=== PATIENT | female | born 1935 | race Caucasian/White ===

== ENCOUNTER → 2018-12-25 | Outpatient (CLI) | payer MEDICARE ==
--- NOTE | 2018-12-25 18:17 | XR ---
EXAMINATION TYPE: XR chest 2V DATE OF EXAM: 12/25/2018 COMPARISON: Prior chest x-ray 04/11/2014 HISTORY: Shortness of breath TECHNIQUE: Frontal and lateral views of the chest are obtained. FINDINGS: There is no focal air space opacity, pleural effusion, or pneumothorax seen. The cardiac silhouette size is within normal limits. The osseous structures are intact. The aorta is dense. Pro minent lung volume may be indicative of underlying COPD. There is thoracic spondylosis. IMPRESSION: No acute cardiopulmonary process.
== END | disposition home or self-care (01) ==
LOC: RADXRMAIN 13:34
PROVIDERS: ATTEND Family Medicine
DX: R06.02 Shortness of breath (principal)
CPT/HCPCS: 71046

== ENCOUNTER → 2019-04-12 | Outpatient (CLI) | payer MEDICARE, BC ==
--- NOTE | 2019-04-16 10:45 | MM ---
Reason for exam: screening (asymptomatic). Last mammogram was performed 15 years ago. History: Patient is postmenopausal. Took estrogen for 16 years. Physical Findings: A clinical breast exam by your physician is recommended on an annual basis and results should be correlated with mammographic findings. MG 3D Screening Mammo W/Cad Bilateral CC and MLO view(s) were taken. No prior studies available for comparison. There are scattered fibroglandular densities. No suspicious abnormality. Benign vascular and oil cyst calcifications. ASSESSMENT: Negative, BI-RAD 1 RECOMMENDATION: Routine screening mammogram of both breasts in 1 year.
== END | disposition home or self-care (01) ==
LOC: RADMAMWWP 14:19
PROVIDERS: ATTEND Family Medicine
DX: Z12.31 Encounter for screening mammogram for malignant neoplasm of breast (principal)
CPT/HCPCS: 77063; 77067

== ENCOUNTER 2019-05-08 21:55 | Emergency (ER) | payer MEDICARE, BC ==
[2019-05-08 22:05] VITALS: RESP 16; TEMP 97.9
--- NOTE | 2019-05-08 23:01 | ED ---
General Adult HPI - General Chief complaint: GI Bleed Stated complaint: Rectal Bleeding Time Seen by Provider: 05/08/19 22:08 Source: patient Mode of arrival: ambulatory Limitations: no limitations - History of Present Illness Initial comments: Malinda is an 83-year-old female who presents to the emergency department today for evaluation of GI bleeding. Patient is currently doing oral prep for colonoscopy scheduled for tomorrow morning. Patient reports that she drink the first bottle of breath, she's had multiple stools that it become loose and more becoming clear in color, she states that her last bowel movement had some bright red blood. Patient does have a history of bright red bleeding due to hemorrhoids in the past. Patient does report crampy abdominal pain but nothing out of proportion to doing prep for colonoscopy. denies any chest pain palpitations lightheadedness shortness of breath. - Related Data Home Medications Medication Instructions Recorded Confirmed Clopidogrel Bisulfate [Plavix] 75 mg PO HS 04/11/14 05/07/19 Levothyroxine Sodium [Synthroid] 75 mcg PO DAILY 04/11/14 05/07/19 Simvastatin [Zocor] 40 mg PO HS 04/11/14 05/07/19 Famotidine 20 mg PO DAILY 04/16/19 05/07/19 Fenofibrate [Lofibra] 160 mg PO 1800 04/16/19 05/07/19 Lisinopril [Zestril] 5 mg PO DAILY 04/16/19 05/07/19 QUEtiapine [SEROquel] 75 mg PO HS 04/16/19 05/07/19 amLODIPine [Norvasc] 5 mg PO DAILY 04/16/19 05/07/19 Cholecalciferol [Vitamin D3 (25 1,000 unit PO DAILY 05/07/19 05/07/19 Mcg = 1000 Iu)] Garlic 1 each PO DAILY 05/07/19 05/07/19 Glucosam/Héctor-Msm1/C/Stephan/Bosw 1 each PO DAILY 05/07/19 05/07/19 [Glucosamine-Chondroitin Tablet] Ubidecarenone [Co Q-10] 100 mg PO DAILY 05/07/19 05/07/19 Vitamin E 100 unit PO DAILY 05/07/19 05/07/19 Allergies Allergy/AdvReac Type Severity Reaction Status Date / Time No Known Allergies Allergy Verified 05/08/19 22:04 Review of Systems ROS Statement: Those systems with pertinent positive or pertinent negative responses have been documented in the HPI. ROS Other: All systems not noted in ROS Statement are negative. Past Medical History Past Medical History: Hyperlipidemia, Hypertension Additional Past Medical History / Comment(s): occasional crampy, burning sensation in rectal/vaginal area History of Any Multi-Drug Resistant Organisms: None Reported Past Surgical History: No Surgical Hx Reported Past Psychological History: Depression Past Alcohol Use History: None Reported General Exam - General Exam Comments Initial Comments: Physical Exam GENERAL: Patient is well-developed and well-nourished. Patient is nontoxic and well-hydrated and is in no distress. HENT: Normocephalic, Atraumatic. EYES: PERRL, EOMI PULMONARY: Unlabored respirations. CARDIOVASCULAR: RRR Warm and well perfused extremities ABDOMEN: Non-distended SKIN: No rashes or bruising : Normal external genitalia Rectal exam with internal and external hemorrhoids Dried red blood noted on hemorrhoids, no active bleeding noted NEUROLOGIC: Alert and oriented Normal speech Normal gait MUSCULOSKELETAL: Moving all extremities with no apparent injury PSYCHIATRIC: No SI/HI Limitations: no limitations Course Vital Signs 05/08/19 05/08/19 22:02 23:44 Temperature 97.9 F Pulse Rate 89 71 Respiratory 16 16 Rate Blood Pressure 157/70 165/78 O2 Sat by Pulse 100 98 Oximetry Medical Decision Making - Medical Decision Making The patient was seen and evaluated history is obtained from patient. Patient had a single episode of bright red bleeding while doing colonoscopy prep. Patient is hemodynamically stable on arrival she is on anticoagulant medication. Labs were ordered and resulted with a hemoglobin of 14. Patient with no further GI bleeding in the emergency department despite being observed for over 2 hours. At this time patient stable for discharge home, continued GI prep, follow up with Dr. Valdez the morning for regularly scheduled colonoscopy. All questions pertaining care were answered return parameters were discussed patient was discharged home in stable condition. - Lab Data Result diagrams: 05/08/19 22:20 05/08/19 22:20 Lab Results 05/08/19 05/08/19 05/08/19 Range/Units 22:20 22:20 22:20 WBC 8.6 (3.8-10.6) k/uL RBC 4.34 (3.80-5.40) m/uL Hgb 14.6 (11.4-16.0) gm/dL Hct 41.9 (34.0-46.0) % MCV 96.5 (80.0-100.0) fL MCH 33.7 (25.0-35.0) pg MCHC 34.9 (31.0-37.0) g/dL RDW 11.9 (11.5-15.5) % Plt Count 361 (150-450) k/uL Neutrophils % 58 % Lymphocytes % 25 % Monocytes % 10 % Eosinophils % 5 % Basophils % 1 % Neutrophils # 5.0 (1.3-7.7) k/uL Lymphocytes # 2.1 (1.0-4.8) k/uL Monocytes # 0.8 (0-1.0) k/uL Eosinophils # 0.4 (0-0.7) k/uL Basophils # 0.1 (0-0.2) k/uL PT 10.5 (9.0-12.0) sec INR 1.0 (<1.2) APTT 23.5 (22.0-30.0) sec Sodium 139 (137-145) mmol/L Potassium 4.2 (3.5-5.1) mmol/L Chloride 108 H (98-107) mmol/L Carbon Dioxide 17 L (22-30) mmol/L Anion Gap 14 mmol/L BUN 22 H (7-17) mg/dL Creatinine 1.27 H (0.52-1.04) mg/dL Est GFR (CKD-EPI)AfAm 46 (>60 ml/min/1.73 sqM) Est GFR (CKD-EPI)NonAf 40 (>60 ml/min/1.73 sqM) Glucose 128 H (74-99) mg/dL Calcium 10.7 H (8.4-10.2) mg/dL Magnesium 2.0 (1.6-2.3) mg/dL Total Bilirubin 0.8 (0.2-1.3) mg/dL AST 22 (14-36) U/L ALT 16 (9-52) U/L Alkaline Phosphatase 61 (38-126) U/L Total Protein 7.7 (6.3-8.2) g/dL Albumin 5.0 (3.5-5.0) g/dL Disposition Clinical Impression: Bright red blood per rectum Disposition: HOME SELF-CARE Condition: Stable Instructions (If sedation given, give patient instructions): Gastrointestinal Bleeding (ED) Additional Instructions: Continue your colonoscopy prep as prescribed, follow up with Dr. Haddad in the morning for your colonoscopy. Return to the ER if you have any significant increase in bleeding, development of chest pain palpitation shortness breath lightheadedness or new or concerning symptoms. Is patient prescribed a controlled substance at d/c from ED?: No Referrals: Daniel Martinez DO [Primary Care Provider] - 1-2 days
[2019-05-08 23:11] LABS: Basophils # (A) 0.1 k/uL (0-0.2); Basophils % (A) 1 %; Eosinophils # (A) 0.4 k/uL (0-0.7); Eosinophils % (A) 5 %; HCT 41.9 % (34.0-46.0); HGB 14.6 gm/dL (11.4-16.0); Lymphocytes # (A) 2.1 k/uL (1.0-4.8); Lymphocytes % (A) 25 %; MCH 33.7 pg (25.0-35.0); MCHC 34.9 g/dL (31.0-37.0); MCV 96.5 fL (80.0-100.0); Mean Platelet Volume 6.6; Monocytes # (A) 0.8 k/uL (0-1.0); Monocytes % (A) 10 %; Neutrophils % (A) 58 %; Platelet Count 361 k/uL (150-450); RBC 4.34 m/uL (3.80-5.40); RDW 11.9 % (11.5-15.5); WBC 8.6 k/uL (3.8-10.6)
[2019-05-08 23:19] LABS: Partial Thromboplastin Time 23.5 sec (22.0-30.0); Prothrombin Time 10.5 sec (9.0-12.0)
[2019-05-08 23:25] LABS: Calcium 10.7 mg/dL (8.4-10.2); Potassium 4.2 mmol/L (3.5-5.1); Total Bilirubin 0.8 mg/dL (0.2-1.3); Total Protein 7.7 g/dL (6.3-8.2)
[2019-05-08 23:50] VITALS: BP 165/78; PULSE 71
== END 2019-05-08 23:50 | disposition home or self-care (01) ==
LOC: EC 21:55
DX: K64.4 Residual hemorrhoidal skin tags (principal); K64.8 Other hemorrhoids; E78.5 Hyperlipidemia, unspecified; I10 Essential (primary) hypertension; F32.9 Major depressive disorder, single episode, unspecified; Z79.02 Long term (current) use of antithrombotics/antiplatelets; Z79.890 Hormone replacement therapy; Z79.899 Other long term (current) drug therapy
CPT/HCPCS: 36415; 80053; 83735; 85025; 85610; 85730; 99283

== ENCOUNTER 2019-05-09 08:06 | Day surgery (SDC) | payer MEDICARE, BC ==
[2019-04-16 12:19] VITALS: BMI 26.2
[~2019-05-09 08:06] MED LIST: LACTATED RINGERS 1,000 ML IV SCH; LIDOCAINE 1% 20 ML VIAL (10MG/ML) FOR IV START INTRADERMA PRN
--- NOTE | 2019-05-09 08:53 | P.GSHP ---
History of Present Illness H&P Date: 05/09/19 CHIEF COMPLAINT: Colon screen HISTORY OF PRESENT ILLNESS: The patient is a 83-year-old female who presents for colon screen. Lower endoscopy was offered for further evaluation and management. PAST MEDICAL HISTORY: Please see list. PAST SURGICAL HISTORY: Please see list. MEDICATIONS: Please see list. ALLERGIES: Please see list. SOCIAL HISTORY: No illicit drug use FAMILY HISTORY: No reports of Crohn disease or ulcerative colitis. REVIEW OF ORGAN SYSTEMS: CONSTITUTIONAL: No reports of fevers or chills. PHYSICAL EXAM: VITAL SIGNS: Stable GENERAL: Well-developed pleasant in no acute distress. HEENT: No scleral icterus. Extraocular movements grossly intact. Moist buccal mucosa. NECK: Supple without lymphadenopathy. CHEST: Unlabored respirations. Equal bilateral excursions. CARDIOVASCULAR: Regular rate and rhythm. Distal 2+ pulses. ABDOMEN: Soft, nontender, nondistended. MUSCULOSKELETAL: No clubbing, cyanosis, or edema. ASSESSMENT: 1. Colon screen. PLAN: 1. Recommend proceeding with a lower endoscopy Past Medical History Past Medical History: Hyperlipidemia, Hypertension Additional Past Medical History / Comment(s): occasional crampy, burning sensation in rectal/vaginal area History of Any Multi-Drug Resistant Organisms: None Reported Past Surgical History: No Surgical Hx Reported Additional Past Surgical History / Comment(s): COLONOSCOPY, LEFT EYE SURGERY - LASER Past Anesthesia/Blood Transfusion Reactions: Motion Sickness Past Psychological History: Depression Past Alcohol Use History: None Reported - Past Family History Father Family Medical History: Cancer Brother(s) Family Medical History: Cancer Additional Family Medical History / Comment(s): COLON CANCER Medications and Allergies Home Medications Medication Instructions Recorded Confirmed Type Clopidogrel Bisulfate [Plavix] 75 mg PO HS 04/11/14 05/07/19 History Levothyroxine Sodium [Synthroid] 75 mcg PO DAILY 04/11/14 05/07/19 History Simvastatin [Zocor] 40 mg PO HS 04/11/14 05/07/19 History Famotidine 20 mg PO DAILY 04/16/19 05/07/19 History Fenofibrate [Lofibra] 160 mg PO 1800 04/16/19 05/07/19 History Lisinopril [Zestril] 5 mg PO DAILY 04/16/19 05/07/19 History QUEtiapine [SEROquel] 75 mg PO HS 04/16/19 05/07/19 History amLODIPine [Norvasc] 5 mg PO DAILY 04/16/19 05/09/19 History Cholecalciferol [Vitamin D3 (25 1,000 unit PO DAILY 05/07/19 05/07/19 History Mcg = 1000 Iu)] Garlic 1 each PO DAILY 05/07/19 05/07/19 History Glucosam/Héctor-Msm1/C/Stephan/Bosw 1 each PO DAILY 05/07/19 05/07/19 History [Glucosamine-Chondroitin Tablet] Ubidecarenone [Co Q-10] 100 mg PO DAILY 05/07/19 05/07/19 History Vitamin E 100 unit PO DAILY 05/07/19 05/07/19 History Allergies Allergy/AdvReac Type Severity Reaction Status Date / Time No Known Allergies Allergy Verified 05/09/19 08:42
[2019-05-09 08:55] VITALS: TEMP 97.7
[2019-05-09] MEDS ORDERED: PROPOFOL 10 MG/ML 20 ML VIAL IV ONE (09:33)
--- NOTE | 2019-05-09 10:04 | P.PCN ---
Date of Procedure: 05/09/19 Description of Procedure: PREOPERATIVE DIAGNOSIS: Personal history of colon polyps Family history colon cancer, brother and sister Rectal bleeding with history of hemorrhoids POSTOPERATIVE DIAGNOSIS: Personal history of colon polyps Family history colon cancer, brother and sister Multiple tubular adenomas throughout the colon. External hemorrhoids, grade 4 Internal hemorrhoids, grade 3 with recent bleeding OPERATION: Colonoscopy to the ileocecal valve and appendiceal orifice. Colonoscopy with multiple hot snare polypectomies SURGEON: Candida Parr MD. ANESTHESIA: MAC. INDICATIONS: The patient is an 83-year-old female who presents with rectal bleeding and family history of colon cancer. Benefits and risks were described and informed consent was obtained. DESCRIPTION OF PROCEDURE: The patient had undergone Suprep. She had been brought into the operating room and laid in the left lateral decubitus position. After adequate intravenous sedation, the rectum was examined with 2% lidocaine jelly. External hemorrhoids were encountered with fresh blood. The rectal tone was within normal limits. No lesions were palpated in the rectal vault. An Olympus pediatric colonoscope was advanced until the ileocecal valve and appendiceal orifice were clearly viewed. The prep was excellent. Sigmoid diverticulosis was encountered. Multiple colonic polyps were found and snare polypectomy. No evidence of focal colitis was found. Retroflexion of the scope demonstrated grade 3 internal hemorrhoids without active bleeding or inflammation. The colon was desufflated. The patient had tolerated the procedure well. Withdrawal time was over 6 minutes. FINDINGS: Aronchick preparation quality scale 1 (1-5) Internal hemorrhoids, grade 3 with recent inflammation and bleeding External hemorrhoids, grade 4. No arteriovenous malformations. Sigmoid diverticulosis Removal of 2 polyps from the proximal, mid transverse colon and descending colon: - Snare polypectomy 30 cm from the anal verge, 15 mm tubulovillous adenoma polyp, descending colon - Snare polypectomy 10 cm from the anal verge, 8 mm tubulovillous adenoma polyp, rectum No focal colitis. RECOMMENDATIONS: Given severity of tubular adenomas, recommend repeat colonoscopy 1 year. Plan - Discharge Summary Discharge Rx Participant: No New Discharge Prescriptions: No Action Simvastatin [Zocor] 40 mg PO HS Levothyroxine Sodium [Synthroid] 75 mcg PO DAILY Clopidogrel Bisulfate [Plavix] 75 mg PO HS QUEtiapine [SEROquel] 75 mg PO HS Lisinopril [Zestril] 5 mg PO DAILY amLODIPine [Norvasc] 5 mg PO DAILY Famotidine 20 mg PO DAILY Fenofibrate [Lofibra] 160 mg PO 1800 Cholecalciferol [Vitamin D3 (25 Mcg = 1000 Iu)] 1,000 unit PO DAILY Vitamin E 100 unit PO DAILY Ubidecarenone [Co Q-10] 100 mg PO DAILY Glucosam/Héctor-Msm1/C/Stephan/Bosw [Glucosamine-Chondroitin Tablet] 1 each PO DAILY Garlic 1 each PO DAILY Discharge Medication List Clopidogrel Bisulfate [Plavix] 75 mg PO HS 04/11/14 [History] Levothyroxine Sodium [Synthroid] 75 mcg PO DAILY 04/11/14 [History] Simvastatin [Zocor] 40 mg PO HS 04/11/14 [History] Famotidine 20 mg PO DAILY 04/16/19 [History] Fenofibrate [Lofibra] 160 mg PO 1800 04/16/19 [History] Lisinopril [Zestril] 5 mg PO DAILY 04/16/19 [History] QUEtiapine [SEROquel] 75 mg PO HS 04/16/19 [History] amLODIPine [Norvasc] 5 mg PO DAILY 04/16/19 [History] Cholecalciferol [Vitamin D3 (25 Mcg = 1000 Iu)] 1,000 unit PO DAILY 05/07/19 [History] Garlic 1 each PO DAILY 05/07/19 [History] Glucosam/Héctor-Msm1/C/Stephan/Bosw [Glucosamine-Chondroitin Tablet] 1 each PO DAILY 05/07/19 [History] Ubidecarenone [Co Q-10] 100 mg PO DAILY 05/07/19 [History] Vitamin E 100 unit PO DAILY 05/07/19 [History] Follow up Appointment(s)/Referral(s): Candida Parr MD [STAFF PHYSICIAN] - 05/22/19 Patient Instructions/Handouts: Colorectal Polyps (DC), Diverticulosis Diet (GEN), Diverticulosis (GEN), Hemorrhoids (DC), Rectal Bleeding (DC) Activity/Diet/Wound Care/Special Instructions: Repeat colonoscopy 2 years, 2020 Discharge Disposition: HOME SELF-CARE
[2019-05-09 10:22] VITALS: RESP 16
[2019-05-09 10:49] VITALS: BP 137/60; PULSE 71
== END 2019-05-09 11:16 | disposition home or self-care (01) ==
LOC: ORWHC2ENDO 08:06
PROVIDERS: ATTEND Surgery Plastic and Reconstructive Surgery
DX: D12.8 Benign neoplasm of rectum (principal); K51.40 Inflammatory polyps of colon without complications; K57.30 Diverticulosis of large intestine without perforation or abscess without bleeding; K64.2 Third degree hemorrhoids; K64.4 Residual hemorrhoidal skin tags; I10 Essential (primary) hypertension; E78.5 Hyperlipidemia, unspecified; K21.9 Gastro-esophageal reflux disease without esophagitis; F32.9 Major depressive disorder, single episode, unspecified; Z86.73 Personal history of transient ischemic attack (TIA), and cerebral infarction without residual deficits; Z79.02 Long term (current) use of antithrombotics/antiplatelets; Z79.890 Hormone replacement therapy; Z79.899 Other long term (current) drug therapy; Z86.010 Personal history of colon polyps; Z80.0 Family history of malignant neoplasm of digestive organs
CPT/HCPCS: 88305; 45385; J2704

== ENCOUNTER → 2019-11-21 | Outpatient (CLI) | payer MEDICARE, BC ==
--- NOTE | 2019-11-21 12:50 | CT ---
EXAMINATION TYPE: CT abdomen pelvis wo con DATE OF EXAM: 11/21/2019 COMPARISON: None HISTORY: 84-year-old female Lower pelvic pain CT DLP: 816 mGycm. Automated exposure control for dose reduction was used. TECHNIQUE: Contiguous axial scanning of the abdomen and pelvis without IV contrast. Coronal and sagit beck reconstructions performed. FINDINGS: Median sternotomy wires are present multiple calcified lymph nodes in the visualized subcarinal regio n and right hilum compatible with prior granulomatous disease. Right lower lobe tiny calcified granul javy. Small hiatal hernia. Calcified granuloma posterior right liver lobe. Additional calcified granulomas within the spleen. Gallstones measuring 1.0 cm with a collapsed gallbladder. Adrenal glands, kidneys with bilateral extrarenal pelves, and atrophic pancreas show no gross abnorma lity by noncontrast CT. Small superior and anterior splenules. No dilated small bowel, free fluid, or free air. No abnormal appendix is identified. Oral contrast has progressed to the mid transverse colon. No sign ificant stool burden. Mild diverticulosis along the proximal and mid sigmoid colon. No pericolonic in flammatory change. There is central and left abdominal Rekha mesentery and associated nonenlarged and borderline sized l ymph nodes measuring up to 7 mm, right axial image 47 and coronal image 25. Circumaortic left renal vein. Mild atherosclerotic calcifications throughout the abdominal aorta and iliac arteries. Bladder urine distended. Uterus anteverted. Small amount of air in the upper vagina near the posterio r fornix. Both ovaries are visualized. No abnormal fluid collection in the pelvis or pelvic lymphaden opathy. Bones: Mild degenerative change at the hips. Facet arthropathy lower lumbar spine. Degenerative grade 1 retrolisthesis at L2-L3. Moderate to severe degenerative disc disease here. IMPRESSION: 1. Mid and left abdominal rekha mesentery with associated nonenlarged and borderline sized lymph nod es measuring up to 7 mm. 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 Follow-up in 3 months to ensure stability/resolution and exclude more aggressive etiologies such as early lymphoma. 2. Small hiatal hernia, cholelithiasis, and sigmoid diverticulosis.
== END | disposition home or self-care (01) ==
LOC: RADCTMAIN 10:20
PROVIDERS: ATTEND Family Medicine
DX: K44.9 Diaphragmatic hernia without obstruction or gangrene (principal); K80.20 Calculus of gallbladder without cholecystitis without obstruction; K57.30 Diverticulosis of large intestine without perforation or abscess without bleeding; R93.5 Abnormal findings on diagnostic imaging of other abdominal regions, including retroperitoneum; R10.9 Unspecified abdominal pain; Z13.9 Encounter for screening, unspecified
CPT/HCPCS: 36415; 74176; 82565; 84520

== ENCOUNTER 2019-12-26 08:05 | Day surgery (SDC) | payer MEDICARE, BC ==
[2019-12-24 11:34] VITALS: BMI 24.6
--- NOTE | 2019-12-26 08:03 | P.GSHP ---
History of Present Illness H&P Date: 12/26/19 CHIEF COMPLAINT: GERD HISTORY OF PRESENT ILLNESS: The patient is a 84-year-old female who presents reports gastroesophageal reflux disease. Upper endoscopy was offered for further evaluation and management. PAST MEDICAL HISTORY: Please see list. PAST SURGICAL HISTORY: Please see list. MEDICATIONS: Please see list. ALLERGIES: Please see list. SOCIAL HISTORY: No illicit drug use FAMILY HISTORY: No reports of Crohn disease or ulcerative colitis. REVIEW OF ORGAN SYSTEMS: CONSTITUTIONAL: No reports of fevers or chills. GI: Denies any blood in stools or constipation. PHYSICAL EXAM: VITAL SIGNS: Stable GENERAL: Well-developed and pleasant in no acute distress. HEENT: No scleral icterus. Extraocular movements grossly intact. Moist buccal mucosa. NECK: Supple without lymphadenopathy. CHEST: Unlabored respirations. Equal bilateral excursions. CARDIOVASCULAR: Regular rate and rhythm. Distal 2+ pulses. ABDOMEN: Soft, nondistended. MUSCULOSKELETAL: No clubbing, cyanosis, or edema. ASSESSMENT: 1. Gastroesophageal reflux disease PLAN: 1. Recommend proceeding with an upper endoscopy Past Medical History Past Medical History: Hyperlipidemia, Hypertension Additional Past Medical History / Comment(s): occasional crampy, GALLSTONES SHOWN ON CT-SCAN, POSS. HIATAL HERNIA History of Any Multi-Drug Resistant Organisms: None Reported Past Surgical History: No Surgical Hx Reported Additional Past Surgical History / Comment(s): COLONOSCOPY. BILAT CATARACTS REMOVED WITH LENS IMPLANTS Past Anesthesia/Blood Transfusion Reactions: No Reported Reaction Smoking Status: Never smoker - Past Family History Father Family Medical History: Cancer Sister(s) Family Medical History: Cancer Brother(s) Family Medical History: Cancer Medications and Allergies Home Medications Medication Instructions Recorded Confirmed Type Clopidogrel Bisulfate [Plavix] 75 mg PO HS 04/11/14 12/24/19 History Levothyroxine Sodium [Synthroid] 75 mcg PO DAILY 04/11/14 12/24/19 History Simvastatin [Zocor] 40 mg PO HS 04/11/14 12/24/19 History Famotidine 20 mg PO DAILY 04/16/19 12/24/19 History Fenofibrate [Lofibra] 160 mg PO 1800 04/16/19 12/24/19 History QUEtiapine [SEROquel] 75 mg PO HS 04/16/19 12/24/19 History amLODIPine [Norvasc] 5 mg PO DAILY 04/16/19 12/24/19 History lisinopriL [Zestril] 5 mg PO DAILY 04/16/19 12/24/19 History Cholecalciferol [Vitamin D3 (25 1,000 unit PO DAILY 05/07/19 12/24/19 History Mcg = 1000 Iu)] Garlic 1 each PO DAILY 05/07/19 12/24/19 History Glucosam/Héctor-Msm1/C/Stephan/Bosw 1 each PO DAILY 05/07/19 12/24/19 History [Glucosamine-Chondroitin Tablet] Ubidecarenone [Co Q-10] 100 mg PO DAILY 05/07/19 12/24/19 History Allergies Allergy/AdvReac Type Severity Reaction Status Date / Time No Known Allergies Allergy Verified 12/24/19 11:19
[~2019-12-26 08:05] MED LIST changes: -LIDOCAINE 1% 20 ML VIAL (10MG/ML) FOR IV START INTRADERMA PRN
[2019-12-26 08:31] VITALS: RESP 16; TEMP 98.1
[2019-12-26] MEDS ORDERED: LIDOCAINE 1% (10MG/ML) FOR IV START INTRADERMA ONE (08:43)
[2019-12-26] MEDS ORDERED: LIDOCAINE 1% INJ 10MG/ML (20 ML MDV) ONE (08:56)
[2019-12-26] MEDS ORDERED: PROPOFOL 10 MG/ML 20 ML VIAL IV ONE (08:56)
--- NOTE | 2019-12-26 09:18 | P.PCN ---
Date of Procedure: 12/26/19 Description of Procedure: PREOPERATIVE DIAGNOSIS: Gastroesophageal reflux disease. POSTOPERATIVE DIAGNOSIS: Gastroesophageal reflux disease. Diaphragmatic hiatal hernia OPERATION: Esophagogastroduodenoscopy with biopsies along antrum. SURGEON: Candida Parr MD ANESTHESIA: MAC. INDICATIONS: The patient is a 89year-old female who presents with a history of reflux disease. Benefits and risks of the procedure were described. Informed consent was obtained. DESCRIPTION: The patient was brought into the endoscopy suite and laid in the left lateral decubitus position. An Olympus gastroscope was passed along the posterior oropharynx down to the distal esophagus where the squamocolumnar junction was encountered at 34 cm from the incisors. The stomach was entered and no bile reflux was found. Additional findings are listed below. Biopsies with cold forceps were obtained of the antrum. The first through third portion of the duodenum was examined and unremarkable. Retroflexion of the scope confirmed Hill grade 4 lower esophageal valve. The squamocolumnar junction demonstrated LA grade B erosive esophagitis. The stomach was desufflated. The patient tolerated the procedure well. FINDINGS: Squamocolumnar junction 34 cm from the incisors. Diaphragmatic hiatus at 37 cm. Hiatal hernia, 3 cm Hill grade 4 lower esophageal valve. LA grade B erosive esophagitis. No active duodenitis. Chronic gastritis RECOMMENDATIONS: Upper endoscopy as needed. Recommend esophagram for further assessment Plan - Discharge Summary Discharge Rx Participant: No New Discharge Prescriptions: Continue Simvastatin [Zocor] 40 mg PO HS Levothyroxine Sodium [Synthroid] 75 mcg PO DAILY Clopidogrel Bisulfate [Plavix] 75 mg PO HS QUEtiapine [SEROquel] 75 mg PO HS lisinopriL [Zestril] 5 mg PO DAILY amLODIPine [Norvasc] 5 mg PO DAILY Famotidine 20 mg PO DAILY Fenofibrate [Lofibra] 160 mg PO 1800 Cholecalciferol [Vitamin D3 (25 Mcg = 1000 Iu)] 1,000 unit PO DAILY Ubidecarenone [Co Q-10] 100 mg PO DAILY Glucosam/Héctor-Msm1/C/Stephan/Bosw [Glucosamine-Chondroitin Tablet] 1 each PO DAILY Garlic 1 each PO DAILY Discharge Medication List Clopidogrel Bisulfate [Plavix] 75 mg PO HS 04/11/14 [History] Levothyroxine Sodium [Synthroid] 75 mcg PO DAILY 04/11/14 [History] Simvastatin [Zocor] 40 mg PO HS 04/11/14 [History] Famotidine 20 mg PO DAILY 04/16/19 [History] Fenofibrate [Lofibra] 160 mg PO 1800 04/16/19 [History] QUEtiapine [SEROquel] 75 mg PO HS 04/16/19 [History] amLODIPine [Norvasc] 5 mg PO DAILY 04/16/19 [History] lisinopriL [Zestril] 5 mg PO DAILY 04/16/19 [History] Cholecalciferol [Vitamin D3 (25 Mcg = 1000 Iu)] 1,000 unit PO DAILY 05/07/19 [History] Garlic 1 each PO DAILY 05/07/19 [History] Glucosam/Héctor-Msm1/C/Stephan/Bosw [Glucosamine-Chondroitin Tablet] 1 each PO DAILY 05/07/19 [History] Ubidecarenone [Co Q-10] 100 mg PO DAILY 05/07/19 [History] Follow up Appointment(s)/Referral(s): Candida Parr MD [STAFF PHYSICIAN] - 01/10/20 Patient Instructions/Handouts: Hiatal Hernia (DC) Activity/Diet/Wound Care/Special Instructions: START PLAVIX DECEMBER 29 Discharge Disposition: HOME SELF-CARE
[2019-12-26 09:33] VITALS: BP 165/72; PULSE 70
== END 2019-12-26 10:15 | disposition home or self-care (01) ==
LOC: ORWHC2ENDO 08:05
PROVIDERS: ATTEND Surgery Plastic and Reconstructive Surgery
DX: K21.0 Gastro-esophageal reflux disease with esophagitis (principal); K22.10 Ulcer of esophagus without bleeding; K44.9 Diaphragmatic hernia without obstruction or gangrene; K29.50 Unspecified chronic gastritis without bleeding; R10.12 Left upper quadrant pain; E78.5 Hyperlipidemia, unspecified; I10 Essential (primary) hypertension; E07.9 Disorder of thyroid, unspecified; F31.9 Bipolar disorder, unspecified; K80.80 Other cholelithiasis without obstruction; Z98.890 Other specified postprocedural states; Z98.41 Cataract extraction status, right eye; Z98.42 Cataract extraction status, left eye; Z96.1 Presence of intraocular lens; Z79.02 Long term (current) use of antithrombotics/antiplatelets; Z79.890 Hormone replacement therapy; Z79.899 Other long term (current) drug therapy; Z80.9 Family history of malignant neoplasm, unspecified
CPT/HCPCS: 88305; 43239; J2001; J2704

== ENCOUNTER → 2020-02-04 | Outpatient (CLI) | payer MEDICARE, BC ==
--- NOTE | 2020-02-04 14:18 | CT ---
EXAMINATION TYPE: CT abdomen pelvis w con DATE OF EXAM: 02/04/2020 COMPARISON: CT abdomen pelvis 11/21/2019 HISTORY: Lymphadenopathy, abdominal pain CT DLP: 995 mGycm Automated exposure control for dose reduction was used. TECHNIQUE: Helical acquisition of images was performed from the lung bases through the pelvis. CONTRAST: Performed with Oral Contrast and with IV Contrast, patient injected with 80 mL of Isovue 300. FINDINGS: LUNG BASES: No pericardial or pleural effusion. Calcified coronary artery disease. LIVER: Hepatic cyst and too small to characterize hypodense lesions. Hypodensity near the falciform l igament typical for focal fatty infiltration. Calcified granuloma. BILIARY SYSTEM: Cholelithiasis. No intrahepatic or extrahepatic biliary ductal dilatation. PANCREAS: Atrophic. SPLEEN: Not enlarged. Splenule. Calcified granulomas. ADRENALS: Normal. KIDNEYS: Too small to characterize hypodense lesions on the right. No hydronephrosis bilaterally. BOWEL: Small hiatal hernia. No evidence of bowel obstruction or thickening. Colonic diverticulosis. No acute diverticulitis. PERITONEUM: No free air is visualized. No free fluid. Redemonstrated haziness of the root of the mes entery, with mesenteric lymphadenopathy, unchanged versus 11/21/2019. ADENOPATHY: Mesenteric root prominent lymph nodes unchanged versus 11/21/2019. PELVIS: Normal. VASCULATURE: No abdominal aortic aneurysm. Mild to moderate scattered calcified atherosclerotic dise ase. MUSCULOSKELETAL: Degenerative changes of the spine. No aggressive appearing osseous destructive lesi ons. IMPRESSION: 1. No acute findings to explain patient's abdominal pain. 2. Haziness of the mesenteric root with prominent mesenteric lymph nodes, unchanged versus 11/21/2019 . 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 3. Cholelithiasis. 4. Colonic diverticulosis. No acute diverticulitis.
== END | disposition home or self-care (01) ==
LOC: RADCTMAIN 11:18
PROVIDERS: ATTEND Internal Medicine Hematology & Oncology
DX: K80.20 Calculus of gallbladder without cholecystitis without obstruction (principal); K57.30 Diverticulosis of large intestine without perforation or abscess without bleeding
CPT/HCPCS: 82565; 84520; 74177; 36415; Q9967

== ENCOUNTER 2020-02-08 05:53 | Day surgery (SDC) | payer MEDICARE, BC ==
[2020-02-06 12:33] VITALS: BMI 24.5
[2020-02-08] MEDS ORDERED: HEPARIN SODIUM,PORCINE 5,000 UNIT/ML 1 ML VIAL SQ ONE (06:00)
[2020-02-08] MEDS ORDERED: LACTATED RINGERS 1,000 ML IV SCH (06:04)
[2020-02-08] MEDS ORDERED: fentaNYL (PF) 50 MCG/ML 2 ML AMP IVP PRN (06:04)
[2020-02-08] MEDS ORDERED: LIDOCAINE 1% (10MG/ML) FOR IV START INTRADERMA PRN (06:04)
[2020-02-08] MEDS ORDERED: DEXAMETHASONE SOD PHOSPHATE 10 MG/ML 1 ML VIAL IV ONE (06:04)
[2020-02-08] MEDS ORDERED: MIDAZOLAM 2 MG/2 ML VIAL IV PRN (06:04)
[2020-02-08] MEDS ORDERED: ONDANSETRON 4 MG/2 ML VIAL IVP ONE ×2 (06:04→10:18)
[2020-02-08] MEDS ORDERED: LACTATED RINGERS 1,000 ML IV ONE ×2 (06:51→08:27)
[2020-02-08] MEDS ORDERED: ACETAMINOPHEN TAB 325 MG TAB PO STA (07:02)
--- NOTE | 2020-02-08 07:06 | P.GSHP ---
History of Present Illness H&P Date: 02/08/20 CHIEF COMPLAINT: Gallstones HISTORY OF PRESENT ILLNESS: The patient is a 84-year-old female who presents with history of epigastric including right upper quadrant abdominal pain. She underwent diagnostic studies for her gallbladder. Separately her clinical picture was consistent with Gallstones. Now she presents for surgical intervention. PAST MEDICAL HISTORY: Please see list PAST SURGICAL HISTORY: Please see list MEDICATIONS: Please see list ALLERGIES: Please see list SOCIAL HISTORY: Please see list FAMILY HISTORY: Please see list REVIEW OF ORGAN SYSTEMS: CONSTITUTIONAL: No reports of fevers or chills. PHYSICAL EXAM: VITAL SIGNS: Afebrile vital signs stable GENERAL: Well-developed pleasant in no acute distress. HEENT: No scleral icterus. Extraocular movements grossly intact. Moist buccal mucosa. NECK: Supple without lymphadenopathy. CHEST: Unlabored respirations. Equal bilateral excursions. CARDIOVASCULAR: Distal 2+ pulses. ABDOMEN: Soft, nondistended. Tender along the epigastrium and right upper quadrant. MUSCULOSKELETAL: No clubbing, cyanosis, or edema. NEURO: Cranial nerves II to XII within normal limits. No focal or lateralizing signs. PSYCH: Alert and oriented to person, place and time. SKIN: Well-perfused good skin turgor. ASSESSMENT: 1. Symptomatic gallstones PLAN: 1. Will need a robotic cholecystectomy possible open. Benefits and risks were described. 2. Heparin for DVT prophylaxis 5000 units. 3. Antibiotic prophylaxis. Past Medical History Past Medical History: Hyperlipidemia, Hypertension, Osteoarthritis (OA), Thyroid Disorder Additional Past Medical History / Comment(s): GALLSTONES SHOWN ON CT-SCAN, vertigo, hx "eye occlusion" with Tia-has a little balance problems. SOB, hiatal hernia, diverticulosis, hx anemia as child, History of Any Multi-Drug Resistant Organisms: None Reported Past Surgical History: No Surgical Hx Reported Additional Past Surgical History / Comment(s): RIGOBERTO CATARACTS REMOVED WITH LENS IMPLANTS, laser surgery left eye Past Anesthesia/Blood Transfusion Reactions: Motion Sickness Smoking Status: Never smoker - Past Family History Father Family Medical History: Cancer Brother(s) Family Medical History: Cancer Sister(s) Family Medical History: Cancer Additional Family Medical History / Comment(s): colon Medications and Allergies Home Medications Medication Instructions Recorded Confirmed Type Clopidogrel Bisulfate [Plavix] 75 mg PO HS 04/11/14 02/06/20 History Levothyroxine Sodium [Synthroid] 75 mcg PO DAILY 04/11/14 02/06/20 History Simvastatin [Zocor] 40 mg PO HS 04/11/14 02/06/20 History QUEtiapine [SEROquel] 75 mg PO HS 04/16/19 02/06/20 History amLODIPine [Norvasc] 5 mg PO DAILY 04/16/19 02/06/20 History lisinopriL [Zestril] 5 mg PO DAILY 04/16/19 02/06/20 History Cholecalciferol [Vitamin D3 (25 1,000 unit PO DAILY 05/07/19 02/06/20 History Mcg = 1000 Iu)] Garlic 1 each PO DAILY 05/07/19 02/06/20 History Glucosam/Héctor-Msm1/C/Stephan/Bosw 1 each PO DAILY 05/07/19 02/06/20 History [Glucosamine-Chondroitin Tablet] Ubidecarenone [Co Q-10] 100 mg PO DAILY 05/07/19 02/06/20 History Allergies Allergy/AdvReac Type Severity Reaction Status Date / Time No Known Allergies Allergy Verified 02/06/20 12:16 Surgical - Exam Vital Signs Temp Pulse Resp BP Pulse Ox 97.0 F L 74 18 148/67 98 02/08/20 06:40 02/08/20 06:40 02/08/20 06:40 02/08/20 06:40 02/08/20 06:40
[2020-02-08 07:08] LABS: Basophils # (A) 0.1 k/uL (0-0.2); Basophils % (A) 1 %; Eosinophils # (A) 0.5 k/uL (0-0.7); Eosinophils % (A) 9 %; HCT 39.7 % (34.0-46.0); HGB 13.1 gm/dL (11.4-16.0); Lymphocytes # (A) 1.6 k/uL (1.0-4.8); Lymphocytes % (A) 27 %; MCH 32.1 pg (25.0-35.0); MCV 97.2 fL (80.0-100.0); Mean Platelet Volume 7.2; Monocytes # (A) 0.5 k/uL (0-1.0); Monocytes % (A) 8 %; Neutrophils # (A) 3.2 k/uL (1.3-7.7); Neutrophils % (A) 53 %; Platelet Count 240 k/uL (150-450); RBC 4.08 m/uL (3.80-5.40); RDW 12.8 % (11.5-15.5)
[2020-02-08 07:19] LABS: Albumin 4.5 g/dL (3.5-5.0); Calcium 9.7 mg/dL (8.4-10.2); Total Bilirubin 0.6 mg/dL (0.2-1.3); Total Protein 6.9 g/dL (6.3-8.2)
[2020-02-08] MEDS ORDERED: GLYCOPYRROLATE 0.2 MG/ML 2 ML VIAL ONE (07:34)
[2020-02-08] MEDS ORDERED: ROCURONIUM BROMIDE 10 MG/ML 5 ML VIAL IV ONE (07:34)
[2020-02-08] MEDS ORDERED: PROPOFOL 10 MG/ML 20 ML VIAL IV ONE (07:34)
[2020-02-08] MEDS ORDERED: fentaNYL (PF) 50 MCG/ML 2 ML AMP ONE (07:34)
[2020-02-08] MEDS ORDERED: MIDAZOLAM 2 MG/2 ML VIAL ONE (07:34)
[2020-02-08] MEDS ORDERED: NEOSTIGMINE 1 MG/ML 10 ML VIAL ONE (07:34)
[2020-02-08] MEDS ORDERED: LIDOCAINE 1% INJ 10MG/ML (20 ML MDV) ONE (07:34)
[2020-02-08] MEDS ORDERED: INDOCYANINE GREEN 25 MG VIAL IV ONE (07:34)
[2020-02-08] MEDS ORDERED: SUCCINYLCHOLINE CHLORIDE 100 MG/5 ML SYR IV ONE (07:34)
[2020-02-08] MEDS ORDERED: BUPIVACAINE (PF) 0.25% 30 ML VIAL SQ ONE (07:59)
--- NOTE | 2020-02-08 08:50 | P.OP ---
Date of Procedure: 02/08/20 Description of Procedure: SURGEON: PAULO PARR MD PREOPERATIVE DIAGNOSES: 1. Acute cholecystitis 2. Gastroesophageal reflux disease 3. Generalized anxiety disorder POSTOPERATIVE DIAGNOSES: 1. Acute cholecystitis 2. Gastroesophageal reflux disease 3. Generalized anxiety disorder OPERATION: Robotic-assisted da Joe Xi laparoscopic cholecystectomy, multiport with FIREFLY ESTIMATED BLOOD LOSS: 5 mL. SPECIMENS REMOVED: Gallbladder. COMPLICATIONS: None. OPERATIVE FINDINGS: 1. Moderate pericholecystic fluid with edematous gallbladder wall consistent with acute cholecystitis INDICATIONS: The patient is a 84-year-old female who presents with epigastric right upper quadrant dull pain with gallbladder disorder. Robotic assisted laparoscopic approach was described. Benefits and risks of the procedure including but not limited to bleeding, infection, injury to the biliary tree was described. Informed consent was obtained. DESCRIPTION OF PROCEDURE: Patient was brought to the operating room, placed in supine position. After general induction, the abdomen had been prepped and draped in standard sterile fashion. The robotic da Joe XI system was primed. After a timeout protocol was performed, the patient had been prepped and draped in standard sterile fashion. The patient was injected with indocyanine green. A 5 mm 0 degrees laparoscopic trocar entry was performed along the left upper quadrant. The abdomen insufflated to 15 mmHg pressure which was tolerated well. Diagnostic laparoscopy demonstrated no injury to bowel viscera or mesentery. The liver surface was unremarkable. Next, two 8 mm robotic ports were placed along the right upper abdomen. The camera 8-mm port was maintained along the epigastrium. Another 8 mm port was placed along the left upper abdominal wall after exchanging the 5 mm port. Please note that the ports were placed at least 10 to 15 cm away from the target anatomy of the gallbladder. The robot was docked along the left lateral abdomen. The patient was repositioned in reverse Trendelenburg position. Using a grasper for arm 3, a grasper for arm 4, including hook cautery for arm 1, the robotic system was docked and primed as described. Instruments were interchanged by the doctor's assistant including hook cautery, Bovie cautery and clip appliers. I had sat at the console. The gallbladder fundus was retracted over the dome of the liver. Initial attention was brought to the infundibulum including cystic lymph node. Initial dissection was performed over the cystic lymph node at the infundibulum using hook cautery. The infundibulum was retracted laterally to expose the cystic duct away from the common bile duct. The cystic duct including the cystic artery were dissected free from its surrounding tissue. FIREFLY was used to identify the cystic artery and cystic structures. A critical view of safety was obtained. Large PLASTIC clips were used throughout the entire case. Using a clip letterer, 2 clips were placed at the junction of the infundibulum and cystic duct. The cystic duct was divided between clips. Next, the cystic artery was similarly clipped and cauterized. Electro-Bovie cautery was used to remove the gallbladder from the hepatic fossa. Hemostasis was checked and found to be adequate. The robot was undocked. I re-scrubbed into the case. Using a 10 mm Endo Catch bag via the left upper quadrant incision, the specimen was removed from the abdominal cavity. All pneumoperitoneum instruments were evacuated from the abdominal cavity. The incisions were reapproximated using 4-0 Monocryl in an interrupted subcuticular fashion. Fascial defects were less than 8 mm in size. Please note along the trocar sites, local anesthetic was placed as a field block prior to insertion of all instruments. Liquid glue was applied to the skin. At the end of the procedure needle, sponge, and instrument count had been verified correct by the surgical manager. The patient was transferred to postanesthesia care unit in stable condition. Intraoperative films were shared with the patient's family who were pleased with the level of care. Plan - Discharge Summary Discharge Rx Participant: No New Discharge Prescriptions: New Acetaminophen Tab [Tylenol Tab] 1,000 mg PO Q6HR PRN #30 tablet PRN Reason: Pain Continue Simvastatin [Zocor] 40 mg PO HS Levothyroxine Sodium [Synthroid] 75 mcg PO DAILY Clopidogrel Bisulfate [Plavix] 75 mg PO HS QUEtiapine [SEROquel] 75 mg PO HS lisinopriL [Zestril] 5 mg PO DAILY amLODIPine [Norvasc] 5 mg PO DAILY Cholecalciferol [Vitamin D3 (25 Mcg = 1000 Iu)] 1,000 unit PO DAILY Ubidecarenone [Co Q-10] 100 mg PO DAILY Glucosam/Héctor-Msm1/C/Stephan/Bosw [Glucosamine-Chondroitin Tablet] 1 each PO DAILY Garlic 1 each PO DAILY Discharge Medication List Clopidogrel Bisulfate [Plavix] 75 mg PO HS 04/11/14 [History] Levothyroxine Sodium [Synthroid] 75 mcg PO DAILY 04/11/14 [History] Simvastatin [Zocor] 40 mg PO HS 04/11/14 [History] QUEtiapine [SEROquel] 75 mg PO HS 04/16/19 [History] amLODIPine [Norvasc] 5 mg PO DAILY 04/16/19 [History] lisinopriL [Zestril] 5 mg PO DAILY 04/16/19 [History] Cholecalciferol [Vitamin D3 (25 Mcg = 1000 Iu)] 1,000 unit PO DAILY 05/07/19 [History] Garlic 1 each PO DAILY 05/07/19 [History] Glucosam/Héctor-Msm1/C/Stephan/Bosw [Glucosamine-Chondroitin Tablet] 1 each PO DAILY 05/07/19 [History] Ubidecarenone [Co Q-10] 100 mg PO DAILY 05/07/19 [History] Acetaminophen Tab [Tylenol Tab] 1,000 mg PO Q6HR PRN #30 tablet 02/08/20 [Rx] Follow up Appointment(s)/Referral(s): Paulo Parr MD [STAFF PHYSICIAN] - 02/19/20 Patient Instructions/Handouts: *[facility] - Managing Your Pain After Surgery Without Opioids, Laparoscopic Cholecystectomy (DC) Activity/Diet/Wound Care/Special Instructions: YOU ARE INCREASED RISK FOR BRUISING FROM PLAVIX, GARLIC, SEROQUEL USE. START PLAVIX Feb Wear abdominal binder for comfort No lifting over 10 pounds in 2 weeks until Feb 21 May shower. No bath tub soaks/swimming for two weeks until Feb 21 Diet as tolerated. No driving while on narcotics. Use Tylenol scheduled for the next 24-48 hours for best pain relief. Use ice along incisions for the today to prevent swelling. For today, avoid high fat foods Discharge Disposition: HOME SELF-CARE
[2020-02-08] MEDS: HYDROmorphone 0.5 MG/0.5 ML SYRINGE IVP PRN ×2 (09:01→09:10)
[2020-02-08 09:56] VITALS: RESP 16
[2020-02-08 10:10] VITALS: TEMP 97.1
[2020-02-08] MEDS ORDERED: ONDANSETRON 4 MG/2 ML VIAL ONE (10:17)
[2020-02-08 11:14] VITALS: BP 143/80; PULSE 72
== END 2020-02-08 11:44 | disposition home or self-care (01) ==
LOC: OR 05:53
PROVIDERS: ATTEND Surgery Plastic and Reconstructive Surgery
DX: K80.00 Calculus of gallbladder with acute cholecystitis without obstruction (principal); I10 Essential (primary) hypertension; K21.9 Gastro-esophageal reflux disease without esophagitis; F41.1 Generalized anxiety disorder; E78.5 Hyperlipidemia, unspecified; E07.9 Disorder of thyroid, unspecified; Z79.890 Hormone replacement therapy; Z86.73 Personal history of transient ischemic attack (TIA), and cerebral infarction without residual deficits; Z79.02 Long term (current) use of antithrombotics/antiplatelets; Z79.899 Other long term (current) drug therapy; M19.90 Unspecified osteoarthritis, unspecified site; Z87.19 Personal history of other diseases of the digestive system; Z98.41 Cataract extraction status, right eye; Z98.42 Cataract extraction status, left eye; Z96.1 Presence of intraocular lens; Z80.9 Family history of malignant neoplasm, unspecified; Z80.0 Family history of malignant neoplasm of digestive organs
CPT/HCPCS: 88304; 80053; 85025; 47562; J2250; J1644; J1100; J2710; J0690; J2405; J2001; J3010; J0330; J2704; J1170

== ENCOUNTER → 2020-04-30 | Outpatient (CLI) | payer MEDICARE, BC ==
[2020-04-30 08:10] LABS: HCT 41.6 % (34.0-46.0); HGB 14.4 gm/dL (11.4-16.0); MCH 34.3 pg (25.0-35.0); MCHC 34.6 g/dL (31.0-37.0); MCV 98.9 fL (80.0-100.0); Mean Platelet Volume 6.8; Platelet Count 250 k/uL (150-450); RBC 4.21 m/uL (3.80-5.40); WBC 7.9 k/uL (3.8-10.6)
[2020-04-30 08:20] LABS: Albumin 4.3 g/dL (3.5-5.0); Calcium 9.7 mg/dL (8.4-10.2); Potassium 4.3 mmol/L (3.5-5.1); Total Bilirubin 0.7 mg/dL (0.2-1.3); Total Protein 6.9 g/dL (6.3-8.2)
== END | disposition home or self-care (01) ==
LOC: LABWHC1 07:25
PROVIDERS: ATTEND Surgery Plastic and Reconstructive Surgery
DX: Z01.818 Encounter for other preprocedural examination (principal)
CPT/HCPCS: 36415; 80053; 85027

== ENCOUNTER 2020-07-23 07:54 | Day surgery (SDC) | payer MEDICARE, BC ==
[2020-07-18 15:32] VITALS: BMI 23.1
[~2020-07-23 07:54] MED LIST changes: +LIDOCAINE 1% (10MG/ML) FOR IV START INTRADERMA PRN
[2020-07-23 08:21] VITALS: RESP 16; TEMP 97.6
--- NOTE | 2020-07-23 08:33 | P.GSHP ---
History of Present Illness H&P Date: 07/23/20 CHIEF COMPLAINT: Colon screen HISTORY OF PRESENT ILLNESS: The patient is a 85-year-old female who presents for colon screen. Lower endoscopy was offered for further evaluation and management. PAST MEDICAL HISTORY: Please see list. PAST SURGICAL HISTORY: Please see list. MEDICATIONS: Please see list. ALLERGIES: Please see list. SOCIAL HISTORY: No illicit drug use FAMILY HISTORY: No reports of Crohn disease or ulcerative colitis. REVIEW OF ORGAN SYSTEMS: CONSTITUTIONAL: No reports of fevers or chills. PHYSICAL EXAM: VITAL SIGNS: Stable GENERAL: Well-developed pleasant in no acute distress. HEENT: No scleral icterus. Extraocular movements grossly intact. Moist buccal mucosa. NECK: Supple without lymphadenopathy. CHEST: Unlabored respirations. Equal bilateral excursions. CARDIOVASCULAR: Regular rate and rhythm. Distal 2+ pulses. ABDOMEN: Soft, nontender, nondistended. MUSCULOSKELETAL: No clubbing, cyanosis, or edema. ASSESSMENT: 1. Colon screen. PLAN: 1. Recommend proceeding with a lower endoscopy Past Medical History Past Medical History: CVA/TIA, Hyperlipidemia, Hypertension, Osteoarthritis (OA), Thyroid Disorder Additional Past Medical History / Comment(s): vertigo, hx "eye occlusion" with Tia-has a little balance problems. SOB, hiatal hernia, diverticulosis, HEMORRHOIDS , RECTAL BLEEDING History of Any Multi-Drug Resistant Organisms: None Reported Past Surgical History: Cholecystectomy Additional Past Surgical History / Comment(s): RIGOBERTO CATARACTS REMOVED WITH LENS IMPLANTS, laser surgery left eye, COLONOSCOPY- POLYS REMOVED Past Anesthesia/Blood Transfusion Reactions: Motion Sickness Additional Past Anesthesia/Blood Transfusion Reaction / Comment(s): VERTIGO Smoking Status: Never smoker - Past Family History Father Family Medical History: Cancer Brother(s) Family Medical History: Cancer Sister(s) Family Medical History: Cancer Additional Family Medical History / Comment(s): colon Medications and Allergies Home Medications Medication Instructions Recorded Confirmed Type Clopidogrel Bisulfate [Plavix] 75 mg PO HS 04/11/14 07/18/20 History Levothyroxine Sodium [Synthroid] 75 mcg PO DAILY 04/11/14 07/18/20 History Simvastatin [Zocor] 40 mg PO HS 04/11/14 07/18/20 History QUEtiapine [SEROquel] 75 - 100 mg PO HS 04/16/19 07/18/20 History amLODIPine [Norvasc] 5 mg PO DAILY 04/16/19 07/18/20 History lisinopriL [Zestril] 5 mg PO DAILY 04/16/19 07/18/20 History Cholecalciferol [Vitamin D3 (25 1,000 unit PO DAILY 05/07/19 07/18/20 History Mcg = 1000 Iu)] Glucosam/Héctor-Msm1/C/Stephan/Bosw 1 each PO DAILY 05/07/19 07/18/20 History [Glucosamine-Chondroitin Tablet] Ubidecarenone [Co Q-10] 100 mg PO DAILY 05/07/19 07/18/20 History Allergies Allergy/AdvReac Type Severity Reaction Status Date / Time No Known Allergies Allergy Verified 07/23/20 08:11 Surgical - Exam Vital Signs Temp Pulse Resp BP Pulse Ox 97.6 F 81 16 130/61 96 07/23/20 08:20 07/23/20 08:20 07/23/20 08:20 07/23/20 08:20 07/23/20 08:20
[2020-07-23] MEDS ORDERED: PROPOFOL 10 MG/ML 20 ML VIAL IV ONE (08:43)
--- NOTE | 2020-07-23 09:15 | P.PCN ---
Date of Procedure: 07/23/20 Description of Procedure: PREOPERATIVE DIAGNOSIS: Symptomatic diverticulosis Left lower quadrant abdominal pain Change in bowel habits Personal history of high-risk polyps POSTOPERATIVE DIAGNOSIS: Anal polyp Internal and external hemorrhoids, grade 4 Sigmoid diverticulosis with stricture OPERATION: Colonoscopy to the cecum, ileocecal valve and appendiceal orifice. SURGEON: Candida Parr MD. ANESTHESIA: MAC. INDICATIONS: The patient is a 85-year-old female who presents with change in bowel habits, left lower quadrant abdominal pain, history of high-risk colon polyps. Last colonoscopy less than 5 years ago. Benefits and risks were described and informed consent was obtained. DESCRIPTION OF PROCEDURE: The patient had Suprep tablets. The patient had been brought into the operating room and laid in the left lateral decubitus position. After adequate intravenous sedation, the rectum was examined with 2% lidocaine jelly. A prolapsed internal anal polyp was identified 1 cm in size including complicated external hemorrhoids were encountered. The rectal tone was within normal limits. No lesions were palpated in the rectal vault. An Olympus colonoscope was advanced until the cecum, ileocecal valve and appendiceal orifice were clearly viewed. The prep was excellent. The sigmoid colon was moderately tortuous with stricture at 25 cm from anal verge. Abdominal wall pressure was needed to advance the scope. Moderate sigmoid diverticulosis was encountered. No evidence of focal colitis was found. Retroflexion of the scope demonstrated grade 4 internal hemorrhoids without active bleeding or inflammation. The colon was desufflated. The patient had tolerated the procedure well. Withdrawal time was over 6 minutes. FINDINGS: Aronchick preparation quality scale 1 (1-5) Internal hemorrhoids, grade 4 with complications Anal polyp, 1 cm with prolapse reduced External prolapsed hemorrhoids, grade 4 No arteriovenous malformations. Severe sigmoid diverticulosis with stricture at 25 cm Sigmoid diverticulosis between 25-10 cm from anal verge No focal colitis. RECOMMENDATIONS: Repeat lower endoscopy in one year, 2021 Recommend operative resection of anal polyp including symptomatic sigmoid diverticulosis with stricture Plan - Discharge Summary Discharge Rx Participant: No New Discharge Prescriptions: Continue Simvastatin [Zocor] 40 mg PO HS Levothyroxine Sodium [Synthroid] 75 mcg PO DAILY Clopidogrel Bisulfate [Plavix] 75 mg PO HS QUEtiapine [SEROquel] 75 - 100 mg PO HS lisinopriL [Zestril] 5 mg PO DAILY amLODIPine [Norvasc] 5 mg PO DAILY Cholecalciferol [Vitamin D3 (25 Mcg = 1000 Iu)] 1,000 unit PO DAILY Ubidecarenone [Co Q-10] 100 mg PO DAILY Glucosam/Héctor-Msm1/C/Stephan/Bosw [Glucosamine-Chondroitin Tablet] 1 each PO DAILY Discharge Medication List Clopidogrel Bisulfate [Plavix] 75 mg PO HS 04/11/14 [History] Levothyroxine Sodium [Synthroid] 75 mcg PO DAILY 04/11/14 [History] Simvastatin [Zocor] 40 mg PO HS 04/11/14 [History] QUEtiapine [SEROquel] 75 - 100 mg PO HS 04/16/19 [History] amLODIPine [Norvasc] 5 mg PO DAILY 04/16/19 [History] lisinopriL [Zestril] 5 mg PO DAILY 04/16/19 [History] Cholecalciferol [Vitamin D3 (25 Mcg = 1000 Iu)] 1,000 unit PO DAILY 05/07/19 [History] Glucosam/Héctor-Msm1/C/Stephan/Bosw [Glucosamine-Chondroitin Tablet] 1 each PO DAILY 05/07/19 [History] Ubidecarenone [Co Q-10] 100 mg PO DAILY 05/07/19 [History] Follow up Appointment(s)/Referral(s): Candida Parr MD [STAFF PHYSICIAN] - 07/29/20 Patient Instructions/Handouts: Diverticulosis (DC), Colorectal Polyps (DC), Diverticulosis Diet (GEN) Activity/Diet/Wound Care/Special Instructions: START PLAVIX NOW Repeat colonoscopy in one year, 2021. Will need surgery for an anal polyp and diverticulosis. Discharge Disposition: HOME SELF-CARE
[2020-07-23 09:32] VITALS: BP 168/77; PULSE 75
== END 2020-07-23 10:34 | disposition home or self-care (01) ==
LOC: ORWHC2ENDO 07:54
PROVIDERS: ATTEND Surgery Plastic and Reconstructive Surgery
DX: K56.699 Other intestinal obstruction unspecified as to partial versus complete obstruction (principal); K57.30 Diverticulosis of large intestine without perforation or abscess without bleeding; K64.3 Fourth degree hemorrhoids; K64.4 Residual hemorrhoidal skin tags; K62.0 Anal polyp; I10 Essential (primary) hypertension; E78.5 Hyperlipidemia, unspecified; M19.90 Unspecified osteoarthritis, unspecified site; E07.9 Disorder of thyroid, unspecified; Z79.02 Long term (current) use of antithrombotics/antiplatelets; Z79.890 Hormone replacement therapy; Z79.899 Other long term (current) drug therapy; Z90.49 Acquired absence of other specified parts of digestive tract; Z98.890 Other specified postprocedural states; Z86.73 Personal history of transient ischemic attack (TIA), and cerebral infarction without residual deficits; Z98.41 Cataract extraction status, right eye; Z98.42 Cataract extraction status, left eye; Z96.1 Presence of intraocular lens; Z80.0 Family history of malignant neoplasm of digestive organs
CPT/HCPCS: 45378; J2704

== ENCOUNTER → 2020-08-04 | Outpatient (CLI) | payer MEDICARE, BC ==
[2020-08-04 08:48] LABS: HCT 40.5 % (34.0-46.0); HGB 13.8 gm/dL (11.4-16.0); MCHC 34.1 g/dL (31.0-37.0); MCV 96.8 fL (80.0-100.0); Mean Platelet Volume 6.7; Platelet Count 229 k/uL (150-450); RBC 4.18 m/uL (3.80-5.40); RDW 12.3 % (11.5-15.5); WBC 5.6 k/uL (3.8-10.6)
[2020-08-04 09:05] LABS: Albumin 4.2 g/dL (3.5-5.0); Calcium 9.5 mg/dL (8.4-10.2); Potassium 4.2 mmol/L (3.5-5.1); Total Bilirubin 0.7 mg/dL (0.2-1.3); Total Protein 6.7 g/dL (6.3-8.2)
== END ==
LOC: LABPAT 08:27
PROVIDERS: ATTEND Surgery Plastic and Reconstructive Surgery
DX: Z01.818 Encounter for other preprocedural examination (principal)
CPT/HCPCS: 36415; 80053; 85027; 86850; 86900; 86901

== ENCOUNTER 2020-08-11 08:33 | Inpatient (IN) | payer MEDICARE, BC ==
[2020-08-06 09:18] VITALS: BMI 22.3
[~2020-08-11 08:33] MED LIST changes: +ACETAMINOPHEN TAB 500 MG TAB PO PRN; +ALVIMOPAN 12 MG CAPSULE PO PRN; +DEXAMETHASONE SOD PHOSPHATE 4 MG/ML 1 ML VIAL IV ONE; +HEPARIN SODIUM,PORCINE 5,000 UNIT/ML 1 ML VIAL SQ PRN; +HYDROmorphone 0.5 MG/0.5 ML SYRINGE IVP PRN; -LACTATED RINGERS 1,000 ML IV SCH; +MELOXICAM 7.5 MG TAB PO PRN; +MIDAZOLAM 2 MG/2 ML VIAL IV PRN; +ONDANSETRON 4 MG/2 ML VIAL IVP ONE; +metroNIDAZOLE-NS PMX 500 MG in SALINE 1 100ML.BAG IVPB PRN
[2020-08-11] MEDS ORDERED: Antibiotics per Pharmacy 1 EACH MISC MISCELLANE PRN (08:40)
--- NOTE | 2020-08-11 08:40 | P.GSHP ---
History of Present Illness H&P Date: 08/11/20 CHIEF COMPLAINT: History of sigmoid diverticulitis HISTORY OF PRESENT ILLNESS: The patient is a 85-year-old female with long- standing history of sigmoid diverticulitis with left lower quadrant abdominal pain. She completed a colonoscopy where an anal neoplasm was found. Now she presents for sigmoid colon resection and anal polyp resection PAST MEDICAL HISTORY: Please see list. PAST SURGICAL HISTORY: Please see list. MEDICATIONS: Please see list. ALLERGIES: Please see list. SOCIAL HISTORY: No illicit drug use FAMILY HISTORY: Daughter has ulcerative colitis REVIEW OF ORGAN SYSTEMS: CONSTITUTIONAL: No fevers or chills. No recent weight loss. EYES: Denies any trouble with vision. HEENT: No difficulties with hearing. No nosebleeds. Has difficulty swallowing. Has vertigo RESPIRATORY: Denies pneumonia. Denies any troubles with breathing or dyspnea on exertion. CARDIOVASCULAR: Denies any chest pain, palpitations, or recent heart attacks. Has hypertensive heart disease and on antiplatelet therapy. Has hyperlipidemia. Has coronary artery disease. Has coronary atherosclerosis. GASTROINTESTINAL: Denies fatty food intolerance. Has change in bowel habits and gas bloat. Has chronic constipation. GENITOURINARY: Denies any blood in urine or increased urinary frequency. NEUROLOGICAL: Denies any numbness or tingling along the distal extremities. No seizure disorders or headaches. MUSCULOSKELETAL: Has back pain, stiffness or joint arthritis. SKIN: No current skin cancer. No rash. PSYCHIATRIC: Has depression. No suicidal thoughts. ENDOCRINE: Has hypothyroidism. Denies any blood sugar glucose intolerance. HEME/LYMPHATIC: Denies any lumps and bumps around the neck. No recent deep venous thrombosis. ALLERGY/IMMUNOLOGY: No immunoglobulin therapy. No immune deficiencies. BREAST: Denies current breast lumps, pain or nipple discharge. PHYSICAL EXAM: VITAL SIGNS: Stable GENERAL: Well-developed pleasant in no acute distress. HEENT: No scleral icterus. Extraocular movements grossly intact. Moist buccal mucosa. NECK: Supple without lymphadenopathy. CHEST: Unlabored respirations. Equal bilateral excursions. CARDIOVASCULAR: Regular rate and rhythm. Distal 2+ pulses. ABDOMEN: Soft, nondistended. Tender left lower quadrant MUSCULOSKELETAL: No clubbing, cyanosis, or edema. NERUO: Cranial nerves 2-12 grossly intact. PSYCH: Alert and oriented to person place and time. ASSESSMENT: 1. Symptomatic diverticulosis. 2. Anal polyp. PLAN: 1. Recommend proceeding with sigmoid resection. Robotic approach described. 2. Also recommend excision of anorectal mass with history of colon polyps 3. The patient is at elevated risk due to hypertensive heart disease including chronic antiplatelet therapy. 4. Inpatient hospitalization reviewed. 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 SOB, hiatal hernia, diverticulosis, HEMORRHOIDS,RECTAL BLEEDING, anal polyp History of Any Multi-Drug Resistant Organisms: None Reported Past Surgical History: Cholecystectomy Additional Past Surgical History / Comment(s): RIGOBERTO CATARACTS REMOVED WITH LENS IMPLANTS, laser surgery left eye, COLONOSCOPY- POLYS REMOVED Past Anesthesia/Blood Transfusion Reactions: Motion Sickness Additional Past Anesthesia/Blood Transfusion Reaction / Comment(s): VERTIGO Smoking Status: Never smoker - Past Family History Father Family Medical History: Cancer Brother(s) Family Medical History: Cancer Sister(s) Family Medical History: Cancer Additional Family Medical History / Comment(s): colon Medications and Allergies Home Medications Medication Instructions Recorded Confirmed Type Clopidogrel Bisulfate [Plavix] 75 mg PO HS 04/11/14 08/06/20 History Levothyroxine Sodium [Synthroid] 75 mcg PO DAILY 04/11/14 08/06/20 History Simvastatin [Zocor] 40 mg PO HS 04/11/14 08/06/20 History QUEtiapine [SEROquel] 75 - 100 mg PO HS 04/16/19 08/06/20 History amLODIPine [Norvasc] 5 mg PO QAM 04/16/19 08/06/20 History lisinopriL [Zestril] 5 mg PO QAM 04/16/19 08/06/20 History Cholecalciferol [Vitamin D3 (25 1,000 unit PO DAILY 05/07/19 08/06/20 History Mcg = 1000 Iu)] Glucosam/Héctor-Msm1/C/Stephan/Bosw 1 each PO DAILY 05/07/19 08/06/20 History [Glucosamine-Chondroitin Tablet] Ubidecarenone [Co Q-10] 100 mg PO DAILY 05/07/19 08/06/20 History Allergies Allergy/AdvReac Type Severity Reaction Status Date / Time No Known Allergies Allergy Verified 08/06/20 09:12
[2020-08-11] MEDS: LACTATED RINGERS 1,000 ML IV SCH (09:17)
[2020-08-11 09:27] LABS: Glucose,Whole Blood 161 mg/dL (75-99)
[2020-08-11 09:33] LABS: Basophils # (A) 0.1 k/uL (0-0.2); Basophils % (A) 1 %; Eosinophils # (A) 0.1 k/uL (0-0.7); Eosinophils % (A) 1 %; HGB 13.5 gm/dL (11.4-16.0); Lymphocytes # (A) 1.1 k/uL (1.0-4.8); Lymphocytes % (A) 15 %; MCH 33.5 pg (25.0-35.0); MCHC 34.7 g/dL (31.0-37.0); MCV 96.5 fL (80.0-100.0); Mean Platelet Volume 6.9; Monocytes # (A) 0.7 k/uL (0-1.0); Monocytes % (A) 9 %; Neutrophils # (A) 5.2 k/uL (1.3-7.7); Neutrophils % (A) 73 %; Platelet Count 260 k/uL (150-450); RBC 4.04 m/uL (3.80-5.40); RDW 12.4 % (11.5-15.5); WBC 7.2 k/uL (3.8-10.6)
[2020-08-11 09:44] LABS: Albumin 4.2 g/dL (3.5-5.0); Calcium 9.6 mg/dL (8.4-10.2); Potassium 3.4 mmol/L (3.5-5.1); Total Bilirubin 0.5 mg/dL (0.2-1.3); Total Protein 6.6 g/dL (6.3-8.2)
[2020-08-11 09:46] LABS: Prothrombin Time 10.3 sec (9.0-12.0)
[2020-08-11] MEDS ORDERED: MIDAZOLAM 2 MG/2 ML VIAL IV ONE (10:09)
--- NOTE | 2020-08-11 10:35 | P.ANPRN ---
Procedure Note - Anesthesia - Epidural/Spinal Epidural Continuous Time Out Performed: Yes Date of Procedure: 08/11/20 Procedure Start Time: :08 Procedure Stop Time: 10:13 Location of Patient: PreOp Indication: Acute Post-Operative Pain, Requested by Surgeon Sedation Type: Sedate with meaningful contact maintained Preparation: Sterile Dressing Position: Sitting Catheter: Indwelling Needle Guage: 18 Injectate: Test Dose Lidocaine1.5% w/1:200,000 epi (test dose 3cc) Blood Aspirated: No Pain Paresthesia on Injection Noted: No Events: Uneventful and Well Tolerated
[2020-08-11] MEDS ORDERED: ROPIVACAINE 250 MG, HYDROMORPHONE (PF) 5 MG in SODIUM CHLORIDE 0.9% 200 ML EPIDURAL PRN (10:45)
[2020-08-11] MEDS ORDERED: PROPOFOL 10 MG/ML 20 ML VIAL IV ONE (14:14)
[2020-08-11] MEDS ORDERED: ROCURONIUM 10 MG/ML (5 ML VIAL) IV ONE (14:14)
[2020-08-11] MEDS ORDERED: LIDOCAINE 1% INJ 10MG/ML (20 ML MDV) ONE (14:14)
[2020-08-11] MEDS ORDERED: PHENYLEPHRINE-0.9% NACL SYG 1,000 MCG/10 ML SYRINGE ONE (14:14)
[2020-08-11] MEDS ORDERED: fentaNYL (PF) 50 MCG/ML 2 ML AMP ONE (14:14)
[2020-08-11] MEDS ORDERED: GLYCOPYRROLATE 0.2 MG/ML 2 ML VIAL ONE (14:14)
[2020-08-11] MEDS ORDERED: SUCCINYLCHOLINE CHLORIDE 100 MG/5 ML SYR IV ONE (14:14)
[2020-08-11] MEDS ORDERED: NEOSTIGMINE 1 MG/ML 10 ML VIAL ONE (14:14)
[2020-08-11] MEDS ORDERED: BUPIVACAINE-EPI 0.5%-1:200,000 10 ML VIAL SQ ONE (14:46)
[2020-08-11] MEDS ORDERED: LACTATED RINGERS 1,000 ML IV ONE ×2 (15:17→19:09)
[2020-08-11] MEDS ORDERED: BENZOCAINE/MENTHOL LOZENG 1 EACH LOZENGE MUCOUS MEM PRN (17:34)
--- NOTE | 2020-08-11 17:44 | P.OP ---
Date of Procedure: 08/11/20 Description of Procedure: SURGEON: PAULO ESTRELLA MD PREOPERATIVE DIAGNOSES: 1. 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 Chronic left lower quadrant abdominal pain due to diverticulitis 3. Hypertensive heart disease 4. Chronic antiplatelet therapy 5. Generalized anxiety disorder 6. Depressive disorder 7. Hyperlipidemia 8. Anal polyp 9. History of colon adenomas POSTOPERATIVE DIAGNOSES: 1. 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 Chronic left lower quadrant abdominal pain due to diverticulitis 3. Hypertensive heart disease 4. Chronic antiplatelet therapy 5. Generalized anxiety disorder 6. Depressive disorder 7. Hyperlipidemia 8. Anal polyp 9. History of colon adenomas OPERATION: 1. Robotic-assisted daVinci Xi laparoscopic with sigmoid colectomy and low anterior resection using 29 mm EEA powered stapler 2. Transanal excision of anal polyp 3. Intraoperative colonoscopy for flexible sigmoidoscopy Anesthesia: GETA, local, epidural Estimated Blood Loss (ml): 30 Pathology: other (Sigmoid colon) Condition: stable Disposition: floor COMPLICATIONS: None. Operative Findings: 1. Anastomosis performed using Ethicon power 29 mm ILS stapler 2. Flexible sigmoidoscopy demonstrates no leak 3. Open transanal excision 1 cm polyp forming abdominal INDICATIONS: The patient is a 85-year-old female who presents with persistent left lower quadrant abdominal pain including sigmoid stricture from diverticulosis. Surgical intervention was described. Benefits and risks, including infection, bowel injury, ureteral injury, colostomy creation and possibility for additional surgery was discussed at length. Informed consent was obtained. All questions of the patient and family were answered. DESCRIPTION: Earlier the patient had undergone a bowel prep using the enhanced colon recovery program. The patient was transferred to the operating room onto a split leg table and repositioned to modified lithotomy following intubation. A Farias catheter was placed. The abdomen was then prepped and draped in standard sterile fashion as Ioban was placed along the abdomen to minimize any contamination of skin floor. After a timeout protocol was performed, attention was then brought to the left upper quadrant whereby a 0 degree 5 mm laparoscopic trocar entry was performed. The abdominal cavity was entered and insufflated to 15 mmHg pressure, which was tolerated well. Diagnostic laparoscopy confirmed severe phlegmon incorporating the left pelvis, lower abdominal wall. Next trocars were placed 20 cm superior from the pelvis. A 12-mm trocar was placed along the right lateral abdominal wall. A 8 mm port was placed along the right upper quadrant. Ports were placed 10 cm apart from each other including 15-20 cm away from the target anatomy of the left pelvis. The 5-mm port was exchanged for an 8 mm robotic port. The stapler 12-mm port was arranged along the left lateral abdominal wall. The patient was then placed in Trendelenburg position, at least 21. The robotic da Joe XI system was primed. The robot was docked from the right side of the patient. Using atraumatic graspers and vessel sealer, the robotic system was docked and primed as described. Instruments were interchanged by the gift shop assistant including needle pole truck driver, clip groundhand, hook cautery, robotic stapler and vessel sealer. The robot stapler was prepared along the right lateral abdominal wall. Next, attention was brought to identify the sigmoid colon. The sigmoid mesentery was mobilized using a vessel sealer. Using 60 mm green loads, the descending colon was divided. Mobilization of the colon was performed to the pelvic brim along the sacral promontory. The mesentery of the sigmoid colon was mobilized towards the descending colon using a vessel sealer. Next, the top of the rectum was divided using robotic stapler 60 mm green loads. The rest of the sigmoid colon mesentery was mobilized using vessel sealer. I went to the foot of the bed for selection of a sizer. A colorectal colon anastomosis with an ILS 29 was selected after using a sizer along the rectum. For the proximal sigmoid colon, a 29-mm anvil was placed after creating a colotomy then closed using a stapler at the distal end. The robot arms were temporarily undocked. A stapler was entered along the rectum and mated to the anvil for 1 minute. The anastomosis was created. The donuts were thick on the rectum side and then on the colon side. I then performed a bedside flexible sigmoidoscopy where no leaks or defects were confirmed as the gift shop assistant placed normal saline along the pelvis. At the [facility], 1 cm anal polyp was removed by transanal excision using LigaSure. I re-scrubbed into the case. Irrigation fluid was suctioned from the abdomen. The robot was undocked. All needles were removed from the abdominal cavity. Via the stapler site 12-mm left upper quadrant, the resected colon was brought out through the 12 mm trocar of the left upper quadrant after widening the skin incision to 2-cm. The fascial defect was oversewn using 0 Vicryl and a Vaibhav Rea. All incisions were copiously irrigated using dilute normal saline and hydrogen peroxide mixture. Next all pneumoperitoneum was evacuated from the abdominal cavity. The 8-mm trocar sites were reapproximated using 4-0 Monocryl in an interrupted subcuticular fashion. Local anesthetic was infiltrated to all wounds for postop analgesia. All incisions were also cleansed with diluted hydrogen peroxide. An Optifoam surgical dressing was placed over the colon extraction site. Exofin was applied to the rest of the skin incisions. The patient was extubated successfully. The patient was transferred to the postanesthesia care unit in stable condition.
[2020-08-11] MEDS ORDERED: SODIUM CHLORIDE 0.9% 1,000 ML IV SCH (17:45)
[2020-08-11] MEDS: NALOXONE 0.4 MG/ML 1 ML VIAL IV PRN ×2 (19:18→22:44)
[2020-08-11] MEDS: ACETAMINOPHEN TAB 325 MG TAB PO SCH (20:47)
[2020-08-11] MEDS: SIMETHICONE 40 MG/0.6 ML DROPS 2,000 MG/30 ML BOTTLE PO SCH ×2 (20:47→22:05)
[2020-08-11] MEDS: 0.9% NACL WITH KCL 20 MEQ/L 1,000 ML IV SCH (21:15)
[2020-08-11] MEDS: HEPARIN SODIUM,PORCINE 5,000 UNIT/ML 1 ML VIAL SQ SCH (22:05)
[2020-08-11] MEDS: QUEtiapine 50 MG TAB PO SCH (22:06)
[2020-08-11] MEDS: metroNIDAZOLE-NS PMX 500 MG in SALINE 1 100ML.BAG IVPB SCH (22:06)
[2020-08-12] MEDS: ACETAMINOPHEN TAB 325 MG TAB PO SCH ×5 (01:47→23:22)
[2020-08-12] MEDS: metroNIDAZOLE-NS PMX 500 MG in SALINE 1 100ML.BAG IVPB SCH ×2 (03:38→08:14)
[2020-08-12] MEDS: LACTATED RINGERS 1,000 ML IV SCH (05:52)
[2020-08-12] MEDS: LEVOTHYROXINE 75 MCG TAB PO SCH (06:03)
--- NOTE | 2020-08-12 06:39 | P.PN ---
Progress Note - Text Patient without complaints. Tolerating clears. Denies headache or weakness. Pain /. Epidural currently stopped as patient was hypotensive last night. Epidural site clean and dry. POD#1 s/p bowel resection Assessment and plan: restart epidural today if pain returns
[2020-08-12] MEDS: ALVIMOPAN 12 MG CAPSULE PO SCH ×2 (08:13→21:11)
[2020-08-12] MEDS: lisinopriL 5 MG TAB PO SCH (08:14)
[2020-08-12] MEDS: amLODIPine 5 MG TAB PO SCH (08:14)
[2020-08-12] MEDS: HEPARIN SODIUM,PORCINE 5,000 UNIT/ML 1 ML VIAL SQ SCH ×2 (08:14→21:11)
--- NOTE | 2020-08-12 09:03 | P.PN ---
Subjective Progress Note Date: 08/12/20 CHIEF COMPLAINT: Diverticulitis HISTORY OF PRESENT ILLNESS: The patient is an 85-year-old female status post robotic sigmoid colectomy, 08/11/2020. Patient had an overnight event of hypoventilation requiring Narcan at least twice. She denies any pain. She is tolerating acetaminophen and ibuprofen. Her pain is well-controlled. She is tolerating clear liquid diet. No bowel movements or flatus. ROS: No reports of nausea and vomiting. No bowel movements. No fevers or chills. No new chest pain. No productive sputum PHYSICAL EXAM: VITAL SIGNS: Reviewed CONSTITUTIONAL: Well developed and in no acute distress. EYES: Conjuctivae without sclera icterus. Extraocular movements grossly intact. HEAD, EARS, NOSE, THROAT: Moist buccal mucosa. Head is atraumatic, normocephalic. Hears conversational speech. No nasal drainage. NECK: No thyroidomegaly. RESPIRATORY: Non-labored respirations and equal bilateral excursions. CARDIOVASCULAR: Palpable 2+ radial pulses. Regular rate. Regular rhythm. ABDOMEN: Incisions clean dry and intact. Soft. No peritonitis. MUSCULOSKELETAL: No gross deformity of the lower extremities noted. No clubbing. No cyanosis. SKIN: Good skin turgor. Well perfused. NEUROLOGIC: Cranial nerves II through XII grossly intact. No focal or lateralizing signs. PSYCH: Appropriate affect. Alert and oriented to person, place and time. CLINICAL LABS: White blood cell count normal, 9.74. ASSESSMENT: 1. Sigmoid stricture with sigmoid diverticulitis PLAN: 1. Discontinue Farias. 2. Ambulation encouraged. 3. Avoid all narcotics due to her sensitivity Objective - Vital Signs Vital signs: Vital Signs Temp 97.5 F L 08/11/20 20:05 Pulse 85 08/12/20 06:10 Resp 16 08/12/20 06:10 BP 124/63 08/12/20 06:10 Pulse Ox 97 08/12/20 08:29 Intake & Output 08/11/20 08/12/20 08/12/20 18:59 06:59 18:59 Intake Total 2049 1501.7 Output Total 130 600 Balance 1920 901.7 Weight 61.4 kg Intake: IV 0 1400 Intake, IV Titration 1.7 Amount Ropivacaine 250 mg 1.7 Hydromorphone (Pf) 5 mg In Sodium Chloride 0.9% 200 ml @ Per Protocol EPIDURAL .Q0M PRN Rx#: [id number] Oral 100 Output: Urine 100 600 Estimated Blood Loss 30 Other: Voiding Method Indwelling Catheter - Labs CBC & Chem 7: 08/13/20 05:13 08/12/20 06:40 Labs: Abnormal Lab Results - Last 24 Hours (Table) 08/11/20 08/11/20 Range/Units 09:18 09:20 Potassium 3.4 L (3.5-5.1) mmol/L Carbon Dioxide 21 L (22-30) mmol/L Glucose 155 H (74-99) mg/dL POC Glucose (mg/dL) 161 H (75-99) mg/dL Assessment and Plan (1) Anal polyp Status: Acute Code(s): K62.0 - ANAL POLYP SNOMED Code(s): 90344170 (2) Diverticulitis large intestine Status: Acute Code(s): K57.32 - DVTRCLI OF LG INT W/O PERFORATION OR ABSCESS W/O BLEEDING SNOMED Code(s): 9157010 (3) Diverticulosis Status: Acute Code(s): K57.90 - DVRTCLOS OF INTEST, PART UNSP, W/O PERF OR ABSCESS W/O BLEED SNOMED Code(s): 021877497 (4) Large bowel stricture Status: Acute Code(s): K56.699 - OTHER INTESTNL OBST UNSP TO PARTIAL VERSUS COMPLETE OBST SNOMED Code(s): 66875944
[2020-08-12] MEDS: SIMETHICONE 40 MG/0.6 ML DROPS 2,000 MG/30 ML BOTTLE PO SCH ×4 (09:19→21:11)
[2020-08-12 10:25] LABS: Basophils # (A) 0.01 X 10*3/uL (0.00-0.10); Basophils % (A) 0.1 %; Eosinophils # (A) 0.02 X 10*3/uL (0.04-0.35); Eosinophils % (A) 0.2 %; HCT 32.1 % (37.2-46.3); HGB 10.6 g/dL (12.0-15.0); Lymphocytes # (A) 1.44 X 10*3/uL (0.90-5.00); Lymphocytes % (A) 14.8 %; MCH 32.9 pg (27.0-32.0); MCV 99.7 fL (80.0-97.0); Mean Platelet Volume 9.7 fL (9.5-12.2); Monocytes # (A) 0.96 X 10*3/uL (0.20-1.00); Monocytes % (A) 9.9 %; Neutrophils # (A) 7.26 X 10*3/uL (1.80-7.70); Neutrophils % (A) 74.5 %; Platelet Count 206 X 10*3/uL (140-440); RBC 3.22 X 10*6/uL (4.10-5.20); RDW 12.5 % (11.5-14.5); WBC 9.74 X 10*3/uL (4.50-10.00)
[2020-08-12 10:54] LABS: African American GFR (CKD) 68.1 (60.0-200.0); Anion Gap 6.8 mmol/L (4.00-12.00); BUN/Creat Ratio 13.33 Ratio (12.00-20.00); Calcium 8.4 mg/dL (8.7-10.3); Carbon Dioxide 25.2 mmol/L (21.6-31.8); Non-African American GFR(CKD) 58.7 (60.0-200.0); Potassium 4.2 mmol/L (3.5-5.5)
[2020-08-12] MEDS: 0.9% NACL WITH KCL 20 MEQ/L 1,000 ML IV SCH (13:45)
[2020-08-12] MEDS ORDERED: LORazepam 2 MG/ML INJ IV PRN (19:48)
[2020-08-12] MEDS: QUEtiapine 50 MG TAB PO SCH (21:11)
[2020-08-13] MEDS: 0.9% NACL WITH KCL 20 MEQ/L 1,000 ML IV SCH ×2 (03:35→09:41)
[2020-08-13] MEDS: LACTATED RINGERS 1,000 ML IV SCH (03:37)
[2020-08-13 05:21] VITALS: RESP 16
[2020-08-13] MEDS: LEVOTHYROXINE 75 MCG TAB PO SCH (05:56)
[2020-08-13] MEDS: ACETAMINOPHEN TAB 325 MG TAB PO SCH ×3 (05:56→16:55)
[2020-08-13] MEDS: lisinopriL 5 MG TAB PO SCH (09:41)
[2020-08-13] MEDS: SIMETHICONE 40 MG/0.6 ML DROPS 2,000 MG/30 ML BOTTLE PO SCH ×3 (09:41→16:59)
[2020-08-13] MEDS: ALVIMOPAN 12 MG CAPSULE PO SCH (09:41)
[2020-08-13] MEDS: HEPARIN SODIUM,PORCINE 5,000 UNIT/ML 1 ML VIAL SQ SCH (09:41)
[2020-08-13] MEDS: amLODIPine 5 MG TAB PO SCH (09:41)
[2020-08-13 10:21] LABS: Basophils # (A) 0.05 X 10*3/uL (0.00-0.10); Basophils % (A) 0.6 %; Eosinophils # (A) 0.19 X 10*3/uL (0.04-0.35); Eosinophils % (A) 2.2 %; HCT 37.8 % (37.2-46.3); HGB 12.4 g/dL (12.0-15.0); Lymphocytes # (A) 1.72 X 10*3/uL (0.90-5.00); Lymphocytes % (A) 20.1 %; MCH 32.5 pg (27.0-32.0); MCHC 32.8 g/dL (32.0-37.0); Mean Platelet Volume 9.8 fL (9.5-12.2); Monocytes # (A) 0.78 X 10*3/uL (0.20-1.00); Monocytes % (A) 9.1 %; Neutrophils % (A) 67.6 %; Platelet Count 207 X 10*3/uL (140-440); RBC 3.82 X 10*6/uL (4.10-5.20); RDW 12.3 % (11.5-14.5); WBC 8.57 X 10*3/uL (4.50-10.00)
[2020-08-13 11:58] VITALS: BP 167/78; PULSE 64; TEMP 98.1
[2020-08-13] MEDS ORDERED: TAMSULOSIN 0.4 MG CAP.ER.24H PO STA (13:51)
--- NOTE | 2020-08-13 17:35 | P.DS ---
Providers Date of admission: 08/11/20 08:33 Expected date of discharge: 08/13/20 Attending physician: Candida Parr Consults: 08/11/20 08:57 Consult Physician Routine Consulting Provider: [facility] Consult Reason/Comments: Epidural Do you want consulting provider notified?: Yes Primary care physician: Daniel Martinez - Discharge Diagnosis(es) (1) Hypertensive heart disease Status: Acute (2) Anal polyp Status: Acute (3) Diverticulitis large intestine Status: Acute (4) Diverticulosis Status: Acute (5) Large bowel stricture Status: Acute Hospital Course: POSTOPERATIVE DIAGNOSES: 1. 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 Chronic left lower quadrant abdominal pain due to diverticulitis 3. Hypertensive heart disease 4. Chronic antiplatelet therapy 5. Generalized anxiety disorder 6. Depressive disorder 7. Hyperlipidemia 8. Anal polyp 9. History of colon adenomas COURSE: The patient is a 85-year-old female who presents with persistent left lower quadrant abdominal pain including sigmoid stricture from diverticulosis. She underwent uncomplicated robotic sigmoid colectomy with low anterior resection. She was passing flatus and having bowel movements. Her pain was well- controlled without narcotics. Prior to discharge she was tolerating diet. Discharge instructions were described and verbalized with her and her daughter at bedside. Procedures: OPERATION: 1. Robotic-assisted daVinci Xi laparoscopic with sigmoid colectomy and low anterior resection using 29 mm EEA powered stapler 2. Transanal excision of anal polyp 3. Intraoperative colonoscopy for flexible sigmoidoscopy Anesthesia: GETA, local, epidural Estimated Blood Loss (ml): 30 Pathology: other (Sigmoid colon) Condition: stable Disposition: floor COMPLICATIONS: None. Operative Findings: 1. Anastomosis performed using Ethicon power 29 mm ILS stapler 2. Flexible sigmoidoscopy demonstrates no leak 3. Open transanal excision 1 cm polyp Patient Condition at Discharge: Stable Plan - Discharge Summary Discharge Rx Participant: No New Discharge Prescriptions: New Acetaminophen [Tylenol] 650 mg PO Q6HR #30 tab Tamsulosin [Flomax] 0.4 mg PO DAILY #7 cap Continue Simvastatin [Zocor] 40 mg PO HS Levothyroxine Sodium [Synthroid] 75 mcg PO DAILY Clopidogrel Bisulfate [Plavix] 75 mg PO HS QUEtiapine [SEROquel] 75 - 100 mg PO HS lisinopriL [Zestril] 5 mg PO QAM amLODIPine [Norvasc] 5 mg PO QAM Cholecalciferol [Vitamin D3 (25 Mcg = 1000 Iu)] 1,000 unit PO DAILY Ubidecarenone [Co Q-10] 100 mg PO DAILY Glucosam/Héctor-Msm1/C/Stephan/Bosw [Glucosamine-Chondroitin Tablet] 1 each PO DAILY Discharge Medication List Clopidogrel Bisulfate [Plavix] 75 mg PO HS 04/11/14 [History] Levothyroxine Sodium [Synthroid] 75 mcg PO DAILY 04/11/14 [History] Simvastatin [Zocor] 40 mg PO HS 04/11/14 [History] QUEtiapine [SEROquel] 75 - 100 mg PO HS 04/16/19 [History] amLODIPine [Norvasc] 5 mg PO QAM 04/16/19 [History] lisinopriL [Zestril] 5 mg PO QAM 04/16/19 [History] Cholecalciferol [Vitamin D3 (25 Mcg = 1000 Iu)] 1,000 unit PO DAILY 05/07/19 [History] Glucosam/Héctor-Msm1/C/Stephan/Bosw [Glucosamine-Chondroitin Tablet] 1 each PO DAILY 05/07/19 [History] Ubidecarenone [Co Q-10] 100 mg PO DAILY 05/07/19 [History] Acetaminophen [Tylenol] 650 mg PO Q6HR #30 tab 08/13/20 [Rx] Tamsulosin [Flomax] 0.4 mg PO DAILY #7 cap 08/13/20 [Rx] Follow up Appointment(s)/Referral(s): Candida Parr MD [STAFF PHYSICIAN] - 08/19/20 Patient Instructions/Handouts: Colectomy (IP), Laparoscopic Bowel Resection (IP), Colectomy Diet (DC) Activity/Diet/Wound Care/Special Instructions: START PLAVIX AUGUST 16 No lifting over 4 pounds in 4 weeks until September 11. May shower. DO NOT REMOVE DRESSING. No bath tub soaks for two weeks until August 25 Avoid steak, tough meats and seeds such as raspberry seeds. No driving while on narcotics. Use Tylenol and ibuprofen scheduled for the next 24-48 hours for best pain relief. Use ice along incisions for today to prevent swelling. Discharge Disposition: HOME SELF-CARE
== END 2020-08-13 18:32 | disposition home or self-care (01) | DRG 330 ==
LOC: 2ORMAIN 08:33 → 5NMEDONC 17:48
PROVIDERS: ADMIT Surgery Plastic and Reconstructive Surgery; ATTEND Surgery Plastic and Reconstructive Surgery
PROC: 8E0W4CZ Robotic Assisted Procedure of Trunk Region, Percutaneous Endoscopic Approach (ICD-10-PCS; principal; 2020-08-11 10:30)
PROC: 0DBN4ZZ Excision of Sigmoid Colon, Percutaneous Endoscopic Approach (ICD-10-PCS; principal; 2020-08-11 10:30)
PROC: 0DBQ8ZX Excision of Anus, Via Natural or Artificial Opening Endoscopic, Diagnostic (ICD-10-PCS; principal; 2020-08-11 10:30)
DX: K57.32 Diverticulitis of large intestine without perforation or abscess without bleeding (principal); K56.699 Other intestinal obstruction unspecified as to partial versus complete obstruction; I11.9 Hypertensive heart disease without heart failure; R06.89 Other abnormalities of breathing; E78.5 Hyperlipidemia, unspecified; K62.0 Anal polyp; K59.09 Other constipation; E03.9 Hypothyroidism, unspecified; K44.9 Diaphragmatic hernia without obstruction or gangrene; F41.1 Generalized anxiety disorder; F32.9 Major depressive disorder, single episode, unspecified; I25.10 Atherosclerotic heart disease of native coronary artery without angina pectoris; K64.9 Unspecified hemorrhoids; M54.9 Dorsalgia, unspecified; M19.90 Unspecified osteoarthritis, unspecified site; Z79.890 Hormone replacement therapy; Z79.02 Long term (current) use of antithrombotics/antiplatelets; Z79.899 Other long term (current) drug therapy; Z86.010 Personal history of colon polyps; Z86.73 Personal history of transient ischemic attack (TIA), and cerebral infarction without residual deficits; Z90.49 Acquired absence of other specified parts of digestive tract; Z87.19 Personal history of other diseases of the digestive system; Z98.42 Cataract extraction status, left eye; Z98.41 Cataract extraction status, right eye; Z96.1 Presence of intraocular lens; Z98.890 Other specified postprocedural states; Z83.79 Family history of other diseases of the digestive system; Z80.0 Family history of malignant neoplasm of digestive organs; Z80.9 Family history of malignant neoplasm, unspecified
CPT/HCPCS: 80048; 80053; 83735; 85025; 85610; 86850; 86900; 86901; 88305; 88307; 94760

== ENCOUNTER → 2020-08-19 | Outpatient (CLI) | payer MEDICARE, BC ==
--- NOTE | 2020-08-19 15:00 | US ---
EXAMINATION TYPE: US bladder DATE OF EXAM: 08/19/2020 COMPARISON: NONE CLINICAL HISTORY: R33.9 Retention of urine. Retention of urine EXAM MEASUREMENTS: Post Void Residual Volume: 71.4 mL Color Doppler performed to assess ureteral jets. Bilateral Jets seen: yes Normal Post Void Residual (less than 50ml): no IMPRESSION: 1. Pst void residual. This may 71 mL, normal is 50.
== END ==
LOC: RADUSWWP 14:16
PROVIDERS: ATTEND Surgery Plastic and Reconstructive Surgery
DX: R33.9 Retention of urine, unspecified (principal)
CPT/HCPCS: 76857

== ENCOUNTER → 2020-08-26 | Outpatient (CLI) | payer MEDICARE, BC ==
[2020-08-26 19:01] LABS: Basophils # (A) 0.06 X 10*3/uL (0.00-0.10); Basophils % (A) 0.6 %; Eosinophils # (A) 0.28 X 10*3/uL (0.04-0.35); Eosinophils % (A) 2.9 %; HCT 37.3 % (37.2-46.3); HGB 12.3 g/dL (12.0-15.0); Lymphocytes # (A) 1.54 X 10*3/uL (0.90-5.00); Lymphocytes % (A) 16.2 %; MCH 32.7 pg (27.0-32.0); MCV 99.2 fL (80.0-97.0); Mean Platelet Volume 9.7 fL (9.5-12.2); Monocytes # (A) 1.09 X 10*3/uL (0.20-1.00); Monocytes % (A) 11.5 %; Neutrophils % (A) 68.5 %; Platelet Count 303 X 10*3/uL (140-440); RBC 3.76 X 10*6/uL (4.10-5.20); RDW 12.5 % (11.5-14.5)
== END | disposition home or self-care (01) ==
LOC: LABWHC1 11:57
PROVIDERS: ATTEND Surgery Plastic and Reconstructive Surgery
DX: K57.32 Diverticulitis of large intestine without perforation or abscess without bleeding (principal); R82.91 Other chromoabnormalities of urine
CPT/HCPCS: 36415; 85025; 87086

== ENCOUNTER 2020-10-19 20:22 | Emergency (ER) | payer MEDICARE, BC ==
[2020-10-19 20:40] VITALS: TEMP 97.9
[2020-10-19] MEDS ORDERED: Acetaminophen-Codeine 300-30mg TAB PO STA (21:04)
[2020-10-19] MEDS ORDERED: SODIUM CHLORIDE 0.9% 1,000 ML IV STA (21:05)
[2020-10-19 21:58] LABS: Basophils # (A) 0.1 k/uL (0-0.2); Basophils % (A) 1 %; Eosinophils # (A) 0.6 k/uL (0-0.7); Eosinophils % (A) 6 %; HGB 14.9 gm/dL (11.4-16.0); Lymphocytes # (A) 1.5 k/uL (1.0-4.8); Lymphocytes % (A) 16 %; MCH 33.5 pg (25.0-35.0); MCHC 35.4 g/dL (31.0-37.0); MCV 94.6 fL (80.0-100.0); Mean Platelet Volume 6.8; Monocytes # (A) 0.7 k/uL (0-1.0); Monocytes % (A) 8 %; Neutrophils # (A) 6.3 k/uL (1.3-7.7); Neutrophils % (A) 68 %; Platelet Count 289 k/uL (150-450); RBC 4.44 m/uL (3.80-5.40); RDW 12.2 % (11.5-15.5); WBC 9.3 k/uL (3.8-10.6)
[2020-10-19 22:06] LABS: Appearance,Urine Clear (Clear); Bacteria,Urine Rare /hpf; Bilirubin,Urine Negative (Negative); Blood,Urine Negative (Negative); Color,Urine Light Yellow; Glucose,Urine (UA) Negative (Negative); Ketones,Urine Negative (Negative); Leukocyte Esterase,Urine Small (Negative); Mucus,Urine Rare /hpf; Nitrite,Urine Negative (Negative); Protein,Urine Negative (Negative); RBC,Urine <1 /hpf (0-5); Specific Gravity,Urine 1.007 (1.001-1.035); Squamous Epithelial Cell,Urine 1 /hpf (0-4); Urobilinogen,Urine <2.0 mg/dL (<2.0); WBC,Urine 2 /hpf (0-5)
--- NOTE | 2020-10-19 22:18 | ED ---
Abdominal Pain HPI - General Chief Complaint: Abdominal Pain Stated Complaint: L Abd Pain Time Seen by Provider: 10/19/20 20:48 Source: patient Mode of arrival: wheelchair Limitations: no limitations - History of Present Illness Initial Comments: 85-year-old female with history of diverticulosis presents emergency Department with a chief complaint of abdominal pain. Patient reports on August 11 she had a partial colectomy by Dr. Haddad. States that she was discharged, she continued to have left lower quadrant pain that comes and goes. States the pain is not postprandial. She was only given Tylenol for her pain. States she is able to have bowel movements daily without any difficulties. States the pain was only worse from earlier today where she could not take. Reports it is dull left lower quadrant, 03/15. She reports occasional nausea but no vomiting. Denies any hematuria, hematochezia or melena. She denies any urinary or vaginal symptoms. She denies any fevers or chills. - Related Data Home Medications Medication Instructions Recorded Confirmed Clopidogrel Bisulfate [Plavix] 75 mg PO HS 04/11/14 08/06/20 Levothyroxine Sodium [Synthroid] 75 mcg PO DAILY 04/11/14 08/06/20 Simvastatin [Zocor] 40 mg PO HS 04/11/14 08/06/20 QUEtiapine [SEROquel] 75 - 100 mg PO HS 04/16/19 08/06/20 amLODIPine [Norvasc] 5 mg PO QAM 04/16/19 08/06/20 lisinopriL [Zestril] 5 mg PO QAM 04/16/19 08/06/20 Cholecalciferol [Vitamin D3 (25 1,000 unit PO DAILY 05/07/19 08/06/20 Mcg = 1000 Iu)] Glucosam/Héctor-Msm1/C/Stephan/Bosw 1 each PO DAILY 05/07/19 08/06/20 [Glucosamine-Chondroitin Tablet] Ubidecarenone [Co Q-10] 100 mg PO DAILY 05/07/19 08/06/20 Previous Rx's Medication Instructions Recorded Acetaminophen [Tylenol] 650 mg PO Q6HR #30 tab 08/13/20 Tamsulosin [Flomax] 0.4 mg PO DAILY #7 cap 08/13/20 Allergies Allergy/AdvReac Type Severity Reaction Status Date / Time No Known Allergies Allergy Verified 10/19/20 20:32 Review of Systems ROS Statement: Those systems with pertinent positive or pertinent negative responses have been documented in the HPI. ROS Other: All systems not noted in ROS Statement are negative. 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 SOB, hiatal hernia, diverticulosis, HEMORRHOIDS , RECTAL BLEEDING History of Any Multi-Drug Resistant Organisms: None Reported Past Surgical History: Bowel Resection, Cholecystectomy Additional Past Surgical History / Comment(s): RIGOBERTO CATARACTS REMOVED WITH LENS IMPLANTS, laser surgery left eye, COLONOSCOPY- POLYS REMOVED, bowl surgery Past Anesthesia/Blood Transfusion Reactions: Motion Sickness Additional Past Anesthesia/Blood Transfusion Reaction / Comment(s): VERTIGO Past Psychological History: Bipolar, Depression Smoking Status: Never smoker Past Alcohol Use History: Rare - Past Family History Father Family Medical History: Cancer Brother(s) Family Medical History: Cancer Sister(s) Family Medical History: Cancer Additional Family Medical History / Comment(s): colon General Exam Limitations: no limitations General appearance: alert, in no apparent distress Head exam: Present: atraumatic, normocephalic, normal inspection Eye exam: Present: normal appearance, PERRL, EOMI Pupils: Present: normal accommodation ENT exam: Present: normal exam, normal oropharynx, mucous membranes moist, TM's normal bilaterally, normal external ear exam Neck exam: Present: normal inspection, full ROM. Absent: tenderness Respiratory exam: Present: normal lung sounds bilaterally. Absent: respiratory distress, wheezes, rales Cardiovascular Exam: Present: regular rate, normal rhythm, normal heart sounds. Absent: systolic murmur GI/Abdominal exam: Present: soft, tenderness (Left lower quadrant and suprapubic tenderness). Absent: distended, guarding, rebound, rigid Extremities exam: Present: normal inspection, full ROM, normal capillary refill. Absent: tenderness, pedal edema, joint swelling Back exam: Present: normal inspection, full ROM. Absent: tenderness, CVA tenderness (R), CVA tenderness (L) Neurological exam: Present: alert, oriented X3 Psychiatric exam: Present: normal affect, normal mood Skin exam: Present: warm, dry, intact, normal color Course Vital Signs 10/19/20 10/19/20 20:33 22:00 Temperature 97.9 F Pulse Rate 73 74 Respiratory 18 18 Rate Blood Pressure 141/67 177/84 O2 Sat by Pulse 98 100 Oximetry Medical Decision Making - Medical Decision Making 85-year-old male presents to the emergency department with a chief complaint abdominal pain. On physical examination,Left lower quadrant and suprapubic tenderness. Nonacute abdomen. Vital signs within normal limits. Patient was given 1 L of IV bolus fluid and a Tylenol 3. Laboratory work shows no acute findings. CT of abdomen and pelvis shows a possible synovial cyst in the left h ip. She also appears to have a distended bladder, however she did not complain of any obstructive urinary symptoms. She did receive 1 L of fluids prior to going to the CT. This could possibly explain the abdominal distention. Post void residual bladder scan shows post void of 400. Farias catheter will be inserted. She will follow up with urology. Farias instructions discussed. Return parameters were discussed with patient was understanding and agreeable. Daughter is also present. Case discussed with . - Lab Data Result diagrams: 10/19/20 21:43 10/19/20 21:43 Lab Results 10/19/20 10/19/20 10/19/20 Range/Units 21:43 21:43 21:43 WBC 9.3 (3.8-10.6) k/uL RBC 4.44 (3.80-5.40) m/uL Hgb 14.9 (11.4-16.0) gm/dL Hct 42.0 (34.0-46.0) % MCV 94.6 (80.0-100.0) fL MCH 33.5 (25.0-35.0) pg MCHC 35.4 (31.0-37.0) g/dL RDW 12.2 (11.5-15.5) % Plt Count 289 (150-450) k/uL MPV 6.8 Neutrophils % 68 % Lymphocytes % 16 % Monocytes % 8 % Eosinophils % 6 % Basophils % 1 % Neutrophils # 6.3 (1.3-7.7) k/uL Lymphocytes # 1.5 (1.0-4.8) k/uL Monocytes # 0.7 (0-1.0) k/uL Eosinophils # 0.6 (0-0.7) k/uL Basophils # 0.1 (0-0.2) k/uL Sodium 140 (137-145) mmol/L Potassium 3.6 (3.5-5.1) mmol/L Chloride 106 (98-107) mmol/L Carbon Dioxide 23 (22-30) mmol/L Anion Gap 11 mmol/L BUN 21 H (7-17) mg/dL Creatinine 0.90 (0.52-1.04) mg/dL Est GFR (CKD-EPI)AfAm 68 (>60 ml/min/1.73 sqM) Est GFR (CKD-EPI)NonAf 59 (>60 ml/min/1.73 sqM) Glucose 129 H (74-99) mg/dL Calcium 10.3 H (8.4-10.2) mg/dL Total Bilirubin 0.6 (0.2-1.3) mg/dL AST 21 (14-36) U/L ALT 11 (4-34) U/L Alkaline Phosphatase 94 (38-126) U/L Total Protein 7.3 (6.3-8.2) g/dL Albumin 4.7 (3.5-5.0) g/dL Amylase 54 (30-110) U/L Lipase 118 (23-300) U/L Urine Color Light Yellow Urine Appearance Clear (Clear) Urine pH 7.0 (5.0-8.0) Ur Specific [place] 1.007 (1.001-1.035) Urine Protein Negative (Negative) Urine Glucose (UA) Negative (Negative) Urine Ketones Negative (Negative) Urine Blood Negative (Negative) Urine Nitrite Negative (Negative) Urine Bilirubin Negative (Negative) Urine Urobilinogen <2.0 (<2.0) mg/dL Ur Leukocyte Esterase Small H (Negative) Urine RBC <1 (0-5) /hpf Urine WBC 2 (0-5) /hpf Ur Squamous Epith Cells 1 (0-4) /hpf Urine Bacteria Rare H (None) /hpf Urine Mucus Rare H (None) /hpf - EKG Data EKG Comments: Sinus rhythm Ventricular rate 74, MI 176, QRS 72, QTc 461. Disposition Clinical Impression: Abdominal pain, Urinary retention Disposition: HOME SELF-CARE Condition: Stable Instructions (If sedation given, give patient instructions): Acute Urinary Retention in Women (ED), Farias Catheter Placement and Care (ED), Farias Catheter Removal (DC) Additional Instructions: Follow instructions for Farias catheter. Follow-up with urology. Return to emergency department if symptoms worsen. Is patient prescribed a controlled substance at d/c from ED?: No Referrals: Daniel Martinez DO [Primary Care Provider] - 1-2 days Napoleon Scott MD [STAFF PHYSICIAN] - 1-2 days Time of Disposition: 23:50
[2020-10-19 22:26] LABS: Albumin 4.7 g/dL (3.5-5.0); Calcium 10.3 mg/dL (8.4-10.2); Potassium 3.6 mmol/L (3.5-5.1); Total Bilirubin 0.6 mg/dL (0.2-1.3); Total Protein 7.3 g/dL (6.3-8.2)
--- NOTE | 2020-10-19 23:03 | CT ---
EXAMINATION TYPE: CT abdomen pelvis w con DATE OF EXAM: 10/19/2020 COMPARISON: 02/04/2020 HISTORY: Left lower quadrant abdominal pain CT DLP: 687.6 mGycm Automated exposure control for dose reduction was used. CONTRAST: Performed with IV Contrast, patient injected with 100 mL of Isovue 370. Images obtained from the diaphragm to the floor the pelvis with IV contrast. The lung bases are clear. There is no pleural effusion. Heart size is normal. There is no pericardial effusion. There is small hiatal hernia. Liver is intact. The bile ducts are not dilated. Gallbladder appears absent. Spleen is intact. There is no pancreatic mass. The stomach appears intact. There is small hiatal hernia. There is no adrenal mass. Kidneys show satisfactory contrast opacification. There is no hydronephrosi s. Delayed images show normal renal excretion. Ureters are not dilated. There is 5 mm cortical cyst a nterior right kidney. There is no retroperitoneal adenopathy. Ureters are not dilated. Bladder disten ds smoothly. There is 8 x 3.6 cm fluid collection anterior and medial to the intertrochanteric left f emur and femoral neck. This is probably a synovial cyst. There is some fluid lateral to the left femo ral neck and the hip joint.. There is small amount of air within the fluid anteriorly. There is narro wing of left hip joint space. Right hip joint space is fairly normal. There is no evidence of pelvic fracture. Sacroiliac joints are intact. The lumbar vertebra have normal alignment. There is narrowing of the L2-3 disc space with spurring. There is no compression fracture. There is no significant spin al stenosis. There is developmentally adequate spinal canal. There is no mesenteric edema. There is no ascites or free air. There is no bowel obstruction. There i s no free fluid in the pelvis. The uterus is anteverted. Appendix is not seen. No sign of appendiciti s. IMPRESSION: Fluid collection around the left hip joint could relate to synovial cyst and synovitis and is new com pared to old exam. Small air bubble in the fluid. There is moderate arthritic narrowing of the left h ip joint space. No fracture seen. No acute abnormality within the abdomen pelvis.
[2020-10-20 01:15] VITALS: BP 161/82; PULSE 76; RESP 16
== END 2020-10-20 00:20 | disposition home or self-care (01) ==
LOC: EC 20:22
DX: R33.9 Retention of urine, unspecified (principal); E78.5 Hyperlipidemia, unspecified; I10 Essential (primary) hypertension; M19.90 Unspecified osteoarthritis, unspecified site; E07.9 Disorder of thyroid, unspecified; F32.9 Major depressive disorder, single episode, unspecified; Z90.49 Acquired absence of other specified parts of digestive tract; Z86.73 Personal history of transient ischemic attack (TIA), and cerebral infarction without residual deficits
CPT/HCPCS: 51798; 36415; 93005; 80053; 82150; 83690; 85025; 81001; 74177; 99284; Q9967

== ENCOUNTER → 2020-12-05 | Outpatient (CLI) | payer MEDICARE, BC ==
--- NOTE | 2020-12-05 13:38 | XR ---
EXAMINATION TYPE: XR abdomen 2V DATE OF EXAM: 12/05/2020 COMPARISON: NONE HISTORY: Pain TECHNIQUE: One view abdominal series FINDINGS: The osseous structures are intact. The bowel gas pattern is nonspecific. Postoperative change involv ing the left hip and arthropathy of the right hip. Hypertrophic and degenerative changes spine. Stent s retained fecal debris throughout the colon. Surgery in the pelvis noted. IMPRESSION: 1. Nonspecific abdomen. Correlate for constipation.
== END | disposition home or self-care (01) ==
LOC: RADXRMAIN 12:36
PROVIDERS: ATTEND Family Medicine
DX: R10.32 Left lower quadrant pain (principal)
CPT/HCPCS: 74019

== ENCOUNTER 2021-12-03 09:15 | Day surgery (SDC) | payer MEDICARE, BC ==
[2021-12-01 11:14] VITALS: BMI 25.3
--- NOTE | 2021-12-03 07:41 | P.GSHP ---
History of Present Illness H&P Date: 12/03/21 CHIEF COMPLAINT: Diverticulitis HISTORY OF PRESENT ILLNESS: The patient is a 86-year-old female who presents for diverticulitis. Lower endoscopy was offered for further evaluation and management. PAST MEDICAL HISTORY: Please see list. PAST SURGICAL HISTORY: Please see list. MEDICATIONS: Please see list. ALLERGIES: Please see list. SOCIAL HISTORY: No illicit drug use FAMILY HISTORY: No reports of Crohn disease or ulcerative colitis. REVIEW OF ORGAN SYSTEMS: CONSTITUTIONAL: No reports of fevers or chills. PHYSICAL EXAM: VITAL SIGNS: Stable GENERAL: Well-developed pleasant in no acute distress. HEENT: No scleral icterus. Extraocular movements grossly intact. Moist buccal mucosa. NECK: Supple without lymphadenopathy. CHEST: Unlabored respirations. Equal bilateral excursions. CARDIOVASCULAR: Regular rate and rhythm. Distal 2+ pulses. ABDOMEN: Soft, nontender, nondistended. MUSCULOSKELETAL: No clubbing, cyanosis, or edema. ASSESSMENT: 1. Colon screen. PLAN: 1. Recommend proceeding with a lower endoscopy Past Medical History Past Medical History: CVA/TIA, Hyperlipidemia, Hypertension, Osteoarthritis (OA), Thyroid Disorder Additional Past Medical History / Comment(s): vertigo, hx "eye occlusion" with Tia-has a little balance problems. SOB, hiatal hernia, diverticulosis, HEMORRHOIDS , RECTAL BLEED History of Any Multi-Drug Resistant Organisms: None Reported Past Surgical History: Bowel Resection, Cholecystectomy, Joint Replacement Additional Past Surgical History / Comment(s): RIGOBERTO CATARACTS REMOVED WITH LENS IMPLANTS, COLONOSCOPY- POLYS REMOVED, bowel surgery, left hip replacement Past Anesthesia/Blood Transfusion Reactions: Motion Sickness Additional Past Anesthesia/Blood Transfusion Reaction / Comment(s): VERTIGO Past Psychological History: Bipolar, Depression Smoking Status: Never smoker Past Alcohol Use History: None Reported Past Drug Use History: None Reported - Past Family History Father Family Medical History: Cancer Brother(s) Family Medical History: Cancer Sister(s) Family Medical History: Cancer Additional Family Medical History / Comment(s): colon Medications and Allergies Home Medications Medication Instructions Recorded Confirmed Type Clopidogrel Bisulfate [Plavix] 75 mg PO HS 04/11/14 12/01/21 History Levothyroxine Sodium [Synthroid] 75 mcg PO DAILY 04/11/14 12/01/21 History Simvastatin [Zocor] 40 mg PO HS 04/11/14 12/01/21 History QUEtiapine [SEROquel] 75 mg PO HS 04/16/19 12/01/21 History amLODIPine [Norvasc] 5 mg PO QAM 04/16/19 12/01/21 History Meclizine [Antivert] 25 mg PO DIRECTED PRN 12/01/21 12/01/21 History Allergies Allergy/AdvReac Type Severity Reaction Status Date / Time No Known Allergies Allergy Verified 12/01/21 11:01
[~2021-12-03 09:15] MED LIST changes: -ACETAMINOPHEN TAB 500 MG TAB PO PRN; -ALVIMOPAN 12 MG CAPSULE PO PRN; -DEXAMETHASONE SOD PHOSPHATE 4 MG/ML 1 ML VIAL IV ONE; -HEPARIN SODIUM,PORCINE 5,000 UNIT/ML 1 ML VIAL SQ PRN; -HYDROmorphone 0.5 MG/0.5 ML SYRINGE IVP PRN; +LACTATED RINGERS 1,000 ML IV SCH; -MELOXICAM 7.5 MG TAB PO PRN; -MIDAZOLAM 2 MG/2 ML VIAL IV PRN; -ONDANSETRON 4 MG/2 ML VIAL IVP ONE; -metroNIDAZOLE-NS PMX 500 MG in SALINE 1 100ML.BAG IVPB PRN
[2021-12-03 09:55] VITALS: TEMP 97.5
[2021-12-03] MEDS ORDERED: LIDOCAINE 2% INJ 20 MG/ML (2 ML VIAL) ONE (10:25)
[2021-12-03] MEDS ORDERED: PROPOFOL 10 MG/ML 20 ML VIAL IV ONE (10:25)
--- NOTE | 2021-12-03 10:54 | P.PCN ---
Date of Procedure: 12/03/21 Description of Procedure: PREOPERATIVE DIAGNOSIS: Diverticulitis POSTOPERATIVE DIAGNOSIS: Colon polyp, sigmoid colon Descending colon polyp Sigmoid diverticuli 2 OPERATION: Colonoscopy to the ileocecal valve and appendiceal orifice, cecum Colonoscopy with cold forceps biopsy SURGEON: Candida Parr MD. ANESTHESIA: MAC. INDICATIONS: The patient is an 86-year-old female who presents with diverticulosis prior diverticulitis. Benefits and risks were described and informed consent was obtained. DESCRIPTION OF PROCEDURE: The patient had undergone Sutab prep. The patient had been brought into the operating room and laid in the left lateral decubitus position. After adequate intravenous sedation, the rectum was examined with 2% lidocaine jelly. The prostate was unremarkable. External hemorrhoids were encountered. The rectal tone was within normal limits. No lesions were palpated in the rectal vault. An Olympus colonoscope was advanced until the cecum, ileocecal valve and appendiceal orifice were clearly viewed. The prep was excellent. Sigmoid diverticulosis 2 was encountered. Colonic polyps were found and removed. No evidence of focal colitis was found. Retroflexion of the scope demonstrated grade 3 internal hemorrhoids without active bleeding or inflammation. The colon was desufflated. The patient had tolerated the procedure well. Withdrawal time was over 6 minutes. FINDINGS: Aronchick preparation quality scale 1 (1-5) Internal hemorrhoids, grade 3 External hemorrhoids, grade 4. No arteriovenous malformations. Sigmoid diverticulosis 2 at 20 cm from the anal verge Removal of 2 polyps: - Cold forceps biopsy at 30 cm from the anal verge, 4 mm polyp, decending colon - Cold forceps biopsy at 20 cm from the anal verge, 5 mm polyp, sigmoid colon No focal colitis. RECOMMENDATIONS: Repeat colonoscopy in 3 years, 2024 Plan - Discharge Summary Discharge Rx Participant: No New Discharge Prescriptions: Continue Simvastatin [Zocor] 40 mg PO HS Levothyroxine Sodium [Synthroid] 75 mcg PO DAILY Clopidogrel Bisulfate [Plavix] 75 mg PO HS QUEtiapine [SEROquel] 75 mg PO HS amLODIPine [Norvasc] 5 mg PO QAM Meclizine [Antivert] 25 mg PO DIRECTED PRN PRN Reason: Vertigo Discharge Medication List Clopidogrel Bisulfate [Plavix] 75 mg PO HS 04/11/14 [History] Levothyroxine Sodium [Synthroid] 75 mcg PO DAILY 04/11/14 [History] Simvastatin [Zocor] 40 mg PO HS 04/11/14 [History] QUEtiapine [SEROquel] 75 mg PO HS 04/16/19 [History] amLODIPine [Norvasc] 5 mg PO QAM 04/16/19 [History] Meclizine [Antivert] 25 mg PO DIRECTED PRN 12/01/21 [History] Follow up Appointment(s)/Referral(s): Candida Parr MD [STAFF PHYSICIAN] - 12/15/21 Patient Instructions/Handouts: Diverticulitis (GEN), Diverticulitis Diet (DC) Activity/Diet/Wound Care/Special Instructions: Repeat colonoscopy in 3 years, 2024 Discharge Disposition: HOME SELF-CARE
[2021-12-03 11:09] VITALS: PULSE 72
[2021-12-03 11:22] VITALS: BP 168/65; RESP 18
== END 2021-12-03 11:35 | disposition home or self-care (01) ==
LOC: ORWHC2ENDO 09:15
PROVIDERS: ATTEND Surgery Plastic and Reconstructive Surgery
DX: K63.5 Polyp of colon (principal); K57.30 Diverticulosis of large intestine without perforation or abscess without bleeding; K57.32 Diverticulitis of large intestine without perforation or abscess without bleeding; K64.4 Residual hemorrhoidal skin tags; K64.2 Third degree hemorrhoids; E78.5 Hyperlipidemia, unspecified; I10 Essential (primary) hypertension; M19.90 Unspecified osteoarthritis, unspecified site; E07.9 Disorder of thyroid, unspecified; K44.9 Diaphragmatic hernia without obstruction or gangrene; I69.312 Visuospatial deficit and spatial neglect following cerebral infarction; I69.398 Other sequelae of cerebral infarction; R42 Dizziness and giddiness; Z90.49 Acquired absence of other specified parts of digestive tract; Z98.42 Cataract extraction status, left eye; Z98.41 Cataract extraction status, right eye; Z96.1 Presence of intraocular lens; Z96.642 Presence of left artificial hip joint; F31.9 Bipolar disorder, unspecified; Z80.9 Family history of malignant neoplasm, unspecified; Z79.02 Long term (current) use of antithrombotics/antiplatelets; Z79.890 Hormone replacement therapy; Z79.899 Other long term (current) drug therapy
CPT/HCPCS: 88305; 45380; J2704; J2001

== ENCOUNTER → 2022-09-02 | Outpatient (CLI) | payer MEDICARE, BC ==
--- NOTE | 2022-09-02 14:56 | MR ---
EXAMINATION TYPE: MR lumbar spine wo con DATE OF EXAM: 09/02/2022 9:01 AM COMPARISON: Radiographs 08/22/2022. CLINICAL INDICATION:Female, 87 years old with history of M51.36 INTERVERTEBRAL DISC DEGENERATION, LUM BAR RE; Low back pain into left thigh TECHNIQUE: Multi planar, multi sequence imaging was performed utilizing: T1-weighted, T2-weighted, a nd turbo inversion recovery imaging of the lumbar spine. IV Contrast: None. FINDINGS: Alignment: The lumbar vertebral bodies have preserved heights with grade 1 anterolisthesis of L4 and L5.. Cord: The conus medullaris and the distal spinal cord appear unremarkable with regards to their signa l intensity and morphology. Bones/Discs: Multilevel disc degeneration changes with osteophyte formation and disc space narrowing. There is complete loss of disc space height at L2-L3 with adjacent bony edema. Perineural cysts note d at the level of S3. High T1/high T2 signal T12 vertebral body hemangioma suspected. T12-L1: No evidence of significant spinal canal stenosis. Facet joint arthropathy mild bilateral neur al foraminal stenosis. L1-L2: No evidence of significant spinal canal stenosis. Facet joint arthropathy mild bilateral neura l foraminal stenosis. L2-L3: Central disc extrusion with 8 mm inferior migration. There is mild narrowing of the ventral thorne barachnoid space. This appears to abut the forming left nerve. There is moderate to severe right and mild left neural foraminal stenosis. L3-L4: Disc bulge and facet joint arthropathy without significant spinal canal stenosis and mild bila teral neural foraminal stenosis. L4-L5: Disc uncovering from grade 1 anterolisthesis and facet joint arthropathy with mild spinal zac l stenosis and mild to moderate bilateral neural foraminal stenosis. L5-S1: The disc is rounded posterior morphology without significant spinal canal stenosis. Facet join t arthropathy with moderate to severe left and mild to moderate right neural foraminal stenosis. Bila teral facet joint effusions. Other findings: None. IMPRESSION: 1. L2-L3 central disc herniation with inferior migration of disc material. There is moderate to wero re and right neural foraminal stenosis. Additionally the disc material may be abutting the forming le ft nerve. 2. L5-S1 moderate to severe left neural foraminal stenosis. 3. L4-L5 grade 1 anterolisthesis with mild to moderate neural foraminal stenosis bilaterally.
== END | disposition home or self-care (01) ==
LOC: RADMRIMAIN 07:52
PROVIDERS: ATTEND Physician Assistant Medical
DX: M51.36 Other intervertebral disc degeneration, lumbar region (principal); M43.16 Spondylolisthesis, lumbar region; M47.817 Spondylosis without myelopathy or radiculopathy, lumbosacral region; M99.73 Connective tissue and disc stenosis of intervertebral foramina of lumbar region; M51.26 Other intervertebral disc displacement, lumbar region; M48.061 Spinal stenosis, lumbar region without neurogenic claudication
CPT/HCPCS: 72148

== ENCOUNTER → 2022-09-15 | Outpatient (CLI) | payer MEDICARE, BC ==
[2022-09-15 12:58] VITALS: BP 149/74; PULSE 79; RESP 18; TEMP 98.8
--- NOTE | 2022-09-15 14:47 | P.PAINPG ---
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 Pain level is provoked at 10 /10 in intensity, constant, localized in the L lower lumbar spine, sharp in character w shooting towards the LLE. Pain is provoked by sitting for periods of 20 min or more. Pain is alleviated with injections, medications, topical, PT in the past which was ineffective, physician guided home stretching regimen multiple times weekly which she currently does, repositioning and rest. Interventional pain procedures completed include LESIs Patient is currently on Tyl, Advil Patient denies any side effects of the medication(s), denies excessive drowsiness or sleepiness, denies suicidal ideation and reports that the current pain medication is helping to control the pain and improve activities of daily living. Patient denies any motor or sensory deficits. Patient denies any fever or night sweats, denies any change in the bowel movements or urination. Physical Examination: -Constitutional: Cooperative. Not in acute distress . - Neurologic: Cranial nerve II to XII intact. No focal neurological deficits. - Psychatric: Alert & oriented x 3. Matching mood & appropriate affect. Judg ment and insight intact. - Musculoskeletal: Cervical spine: Muscle bulk/ tone/ strength in the bilateral upper extremities normal Vertebral body tenderness to palpation over Spurling test positive Distraction test positive Facet loading test positive TTP Thoracic spine Muscle bulk / tone/ strength in the bilateral paraspinal muscles normal Vertebral body tender to palpation over Facet loading test positive TTP Lumbar spine: Motor bulk/ tone/ strength lower extremities , thigh and legs : 5/5 Deep tendon reflexes : Normal Knee Jerk. Normal Ankle Jerk . Vertebral body tenderness to palpation over L5 Lumbar Facet Loading Test positive Straight Leg Raise: positive at 30 degrees right side/ left side Gaenslen's Test positive Sacral spine : Severe tenderness over the Sacroiliac joint: right side / left side Range of motion: Flexion of the lumbar spine <60 degrees Range of motion: Extension of the lumbar spine <20 degrees Gaenslen's Test positive right side / left side Neal test: positive right side / left side Thigh Thrust Test positive right side / left side Sacral Thrust Test positive right side / left side Imaging: MRI without contrast of the lumbar spine from 09/02/22 reviewed Assessment and plan: Chronic LBP secondary to lumbar DDD, spondylosis with facet arthropathy without myelopathy Recommendation of L TFESI L5-S1 #1. May need a series of injections for optimal pain relief. Risks, benefits of procedure discussed and pt verbalized understanding. Admits to anticoagulant use or medical history of diabetes. Protocol for discontinuation/ continuation of medications john procedure discussed. TRISH form filled out for records from Dr Simon's office. All questions answered. I have spent less than 30 minutes on patient care today. Dr Gomez was available by phone for the evaluation of this patient. The time was used to review the medical records including relevant urine studies and Prescription history (MAPs), review of the available imaging, evaluation and examination of the patient, coordination of care with the medical staff and if applicable referring physicians, as well as creation of the medical record PQRS Narrative: Smoking Status Never smoker Hx Alcohol Use (MH) No Home Medications: Ambulatory Orders Clopidogrel Bisulfate [Plavix] 75 mg PO HS 04/11/14 Levothyroxine Sodium [Synthroid] 75 mcg PO DAILY 04/11/14 Simvastatin [Zocor] 40 mg PO HS 04/11/14 QUEtiapine [SEROquel] 75 mg PO HS 04/16/19 amLODIPine [Norvasc] 5 mg PO QAM 04/16/19 Meclizine [Antivert] 25 mg PO DIRECTED PRN 12/01/21 Controlled Substance Measures - Controlled Substance Measures Is patient prescribed a controlled substance at discharge?: No
== END ==
LOC: PNWHC3 11:51
PROVIDERS: ATTEND Specialist
DX: M51.36 Other intervertebral disc degeneration, lumbar region (principal); M47.816 Spondylosis without myelopathy or radiculopathy, lumbar region; G89.29 Other chronic pain
CPT/HCPCS: 99211

== ENCOUNTER 2022-10-12 08:20 | Day surgery (SDC) | payer MEDICARE, BC ==
[~2022-10-12 08:20] MED LIST changes: -LIDOCAINE 1% (10MG/ML) FOR IV START INTRADERMA PRN
[2022-10-12 09:14] VITALS: TEMP 97.3
[2022-10-12] MEDS ORDERED: fentaNYL (PF) 50 MCG/ML 2 ML AMP ONE (09:25)
[2022-10-12] MEDS ORDERED: IOPAMIDOL M200 10 ML VIAL ONE (09:25)
[2022-10-12] MEDS ORDERED: DEXAMETHASONE SOD PHOSPHATE 10 MG/ML 1 ML VIAL ONE (09:25)
--- NOTE | 2022-10-12 09:43 | P.PCN ---
Date of Procedure: 10/12/22 Surgeon: Jany Yeh Pathology: none sent Condition: stable Disposition: PACU Description of Procedure: Preoperative Diagnosis: lumbar radiculopathy Postoperative Diagnosis: Same as above Procedure(s) Performed: Transforaminal epidural steroid injection for level L5- S1 on the left side under fluoroscopic guidance Anesthesia: MAC (IV moderate conscious sedation with fentanyl Surgeon: Jany Yeh Condition: stable Disposition: PACU Description of Procedure: . The patient was seen and identified in the preoperative area. Risks, benefits, complications, and alternatives were discussed with the patient. The patient agreed to proceed with the procedure and signed the consent. IV was started, and vital signs were stable. Patient was taken to the OR and time out was completed. The patient was placed in the prone position on procedure table and a pillow was placed under the abdomen to reduce lumbar lordosis. The lumbosacral area was prepped and draped in the usual sterile fashion. Critical pause was taken. Vital signs were closely monitored during the procedure. Conscious sedation was used during the procedure to decrease patients anxiety. Lidocaine 1% was used to numb the skin up at the target points that were chosen as follows: For the L5-S1 level the target point was at the 6 o'clock position of L-4 pedicle in the oblique view. The correct view was obtained by squaring off the L5 vertebra on the AP view of fluoroscopy then the C-arm was tilted to the left oblique position to an angle at which the superior articular process of the lower vertebra would point to the middle of the pedicle above it at the 6 o'clock position as mentioned above . Then I used 3-1/2 inch 22-gauge Quincke spinal needle to get to the target point mentioned above by touching the inferior edge of the L4 pedicle and then walking off the bone and into the superior part of the [id number] using the lateral view of fluoroscopy. I then injected 1 mL of Isovue contrast dye which showed typical epidurogram around the L5 nerve root and into the epidural space. Then I injected 1 mL of lidocaine 1% +10 mg of Decadron.. Patient tolerated procedure well,and was transferred to PACU in stable condition. A copy of the needle placement picture was saved to the fluoroscopy machine. Sedation time:
[2022-10-12 09:47] VITALS: PULSE 72; RESP 16
[2022-10-12] MEDS ORDERED: IV FLUID CONTINUATION 1,000 ML IV ONE (09:47)
[2022-10-12 10:00] VITALS: BP 172/69
--- NOTE | 2022-10-12 10:00 | FL ---
EXAMINATION TYPE: FL guided pain mgmt statistic DATE OF EXAM: 10/12/2022 HISTORY: Fluoroscopy time Total dose area product (DAP) in mGy*m): [id number] IMPRESSION: 1. Fluoroscopy time.
== END 2022-10-12 10:30 | disposition home or self-care (01) ==
LOC: ORPAIN 08:20
PROVIDERS: ATTEND Anesthesiology
DX: M54.16 Radiculopathy, lumbar region (principal); I10 Essential (primary) hypertension; Z86.73 Personal history of transient ischemic attack (TIA), and cerebral infarction without residual deficits; Z79.02 Long term (current) use of antithrombotics/antiplatelets
CPT/HCPCS: 64483; 99152; J1100; J3010; Q9966

== ENCOUNTER 2023-08-23 17:56 | Emergency (ER) | payer MEDICARE, BC ==
--- NOTE | 2023-08-23 18:36 | ED ---
Dizziness HPI - General Source: patient, family, RN notes reviewed Mode of arrival: wheelchair Limitations: no limitations <Liliana Graham - Last Filed: 08/23/23 18:35> <Kenyon Steele - Last Filed: 08/23/23 21:22> - General Chief Complaint: Dizziness Stated Complaint: Weakness, Dizziness Time Seen by Provider: 08/23/23 18:36 - History of Present Illness Initial Comments: Quick note: Patient is an 88-year-old female presenting to the ER with a chief complaint of weakness and dizziness. Patient does have a history significant of vertigo. She states her left side is numb and both of her feet are tingly. She states this started around 5:30 PM. (Liliana Graham) - Related Data Home Medications Medication Instructions Recorded Confirmed Clopidogrel Bisulfate [Plavix] 75 mg PO HS 04/11/14 10/12/22 Levothyroxine Sodium [Synthroid] 75 mcg PO DAILY 04/11/14 10/12/22 Simvastatin [Zocor] 40 mg PO HS 04/11/14 10/12/22 amLODIPine [Norvasc] 5 mg PO QAM 04/16/19 10/12/22 lisinopriL [Zestril] 5 mg PO HS 10/11/22 10/12/22 ALPRAZolam [Xanax] 0.25 mg PO TID PRN 08/23/23 08/23/23 Ascorbic Acid [Vitamin C] 1,000 mg PO DAILY 08/23/23 08/23/23 Calcium Carbonate [Tums] 500 - 1,000 mg PO TID PRN 08/23/23 08/23/23 Calcium/Magnesium/Zinc(Unknown) 1 tab PO DAILY 08/23/23 08/23/23 Carboxymethylcellulose Sodium 1 drop BOTH EYES QID PRN 08/23/23 08/23/23 [Refresh Tears] Cholecalciferol [Vitamin D3 (125 125 mcg PO DAILY 08/23/23 08/23/23 Mcg = 5000 Iu)] Glucosamine Sulfate 500 mg PO DAILY 08/23/23 08/23/23 Meclizine [Antivert] 12.5 mg PO TID PRN 08/23/23 08/23/23 QUEtiapine [SEROquel] 100 mg PO HS 08/23/23 08/23/23 Ubidecarenone [Coenzyme Q10] 100 mg PO DAILY 08/23/23 08/23/23 polyethylene glycoL 3350 [Miralax] 17 gm PO DAILY PRN 08/23/23 08/23/23 Previous Rx's Medication Instructions Recorded predniSONE [Deltasone] 40 mg PO DAILY #6 tab 08/23/23 Allergies Allergy/AdvReac Type Severity Reaction Status Date / Time No Known Allergies Allergy Verified 08/23/23 18:31 Review of Systems ROS Other: All systems not noted in ROS Statement are negative. <Liliana Graham - Last Filed: 08/23/23 18:35> ROS Other: All systems not noted in ROS Statement are negative. <Kenyon Steele - Last Filed: 08/23/23 21:22> ROS Statement: Those systems with pertinent positive or pertinent negative responses have been documented in the HPI. 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 SOB, hiatal hernia, diverticulosis, HEMORRHOIDS , RECTAL BLEED History of Any Multi-Drug Resistant Organisms: None Reported Past Surgical History: Bowel Resection, Cholecystectomy, Joint Replacement Additional Past Surgical History / Comment(s): RIGOBERTO CATARACTS REMOVED WITH LENS IMPLANTS, COLONOSCOPY- POLYS REMOVED, bowel surgery, left hip replacement Past Anesthesia/Blood Transfusion Reactions: Motion Sickness Additional Past Anesthesia/Blood Transfusion Reaction / Comment(s): VERTIGO Past Psychological History: Bipolar, Depression Smoking Status: Never smoker Past Alcohol Use History: None Reported Past Drug Use History: Marijuana - Past Family History Father Family Medical History: Cancer Brother(s) Family Medical History: Cancer Sister(s) Family Medical History: Cancer Additional Family Medical History / Comment(s): colon <Liliana Graham - Last Filed: 08/23/23 18:35> General Exam Limitations: no limitations <Liliana Graham - Last Filed: 08/23/23 18:35> - General Exam Comments Initial Comments: Visual Physical Exam Vital signs reviewed General: Well-appearing, nontoxic, no acute distress. Anxious Head: Normocephalic, atraumatic Eyes: PERRLA, EOMI ENT: Airway patent Chest: Nonlabored breathing Skin: No visual rash, normal skin tone Neuro: Alert and oriented 3 Musculoskeletal: No gross abnormalities (Liliana Graham) Course Vital Signs 08/23/23 18:25 Temperature 98.0 F Pulse Rate 86 Respiratory 18 Rate Blood Pressure 164/82 O2 Sat by Pulse 100 Oximetry Medical Decision Making <Liliana Graham - Last Filed: 08/23/23 18:35> - Lab Data Result diagrams: 08/23/23 19:06 08/23/23 19:06 <Kenyon Steele - Last Filed: 08/23/23 21:22> - Medical Decision Making I performed the quick note portion of this chart. Electronically signed by Liliana Graham PA-C (Liliana Graham) Was pt. sent in by a medical professional or institution ([facility], ESCROW REPRESENTATIVE, urgent care, hospital, or group home...) When possible be specific @ -No Did you speak to anyone other than the patient for history (EMS, parent, family, police, friend...)? What history was obtained from this source @ -Patient is son and daughter gave most of the history Did you review nursing and triage notes (agree or disagree)? Why? @ -I reviewed and agree with nursing and triage notes Were old charts reviewed (outside hosp., previous admission, EMS record, old EKG, old radiological studies, urgent care reports/EKG's, group home records)? Report findings @ -No old charts were reviewed Differential Diagnosis (chest pain, altered mental status, abdominal pain women, abdominal pain men, vaginal bleeding, weakness, fever, dyspnea, syncope, headache, dizziness, GI bleed, back pain, seizure, CVA, palpatations, mental health, musculoskeletal)? @ -Not applicable EKG interpreted by me (3pts min.). @ -As above X-rays interpreted by me (1pt min.). @ -None done CT interpreted by me (1pt min.). @ -None done U/S interpreted by me (1pt. min.). @ -None done What testing was considered but not performed or refused? (CT, X-rays, U/S, labs)? Why? @ -None What meds were considered but not given or refused? Why? @ -None Did you discuss the management of the patient with other professionals (professionals i.e. , PA, ESCROW REPRESENTATIVE, lab, RT, psych nurse, psychosocial rehabilitation counselor, seaport planning manager, teacher, project officer, rifle case repairer)? Give summary @ -No Was smoking cessation discussed for >3mins.? @ -No Was critical care preformed (if so, how long)? @ -No Were there social determinants of health that impacted care today? How? (Homelessness, low income, unemployed, alcoholism, drug addiction, garcia sportation, low edu. Level, literacy, decrease access to med. care, [facility], rehab)? @ -No Was there de-escalation of care discussed even if they declined (Discuss DNR or withdrawal of care, Hospice)? DNR status @ -No What co-morbidities impacted this encounter? (DM, HTN, Smoking, COPD, CAD, Cancer, CVA, ARF, Chemo, Hep., AIDS, mental health diagnosis, sleep apnea, morbid obesity)? @ -None Was patient admitted / discharged? Hospital course, mention meds given and route, prescriptions, significant lab abnormalities, going to OR and other pertinent info. @ -After talking extensively with the patient and the family they stated that the vertigo is a chronic ongoing problem and the pain in the sides are also a chronic ongoing problem. Patient states the pain always radiates down the legs it was just getting much worse today when she had severe vertigo however the vertigo currently is much improved so is the pain. Patient states the pain is the same pain she always has but when she has an exacerbation of her vertigo it gets worse. Patient received Toradol and Dilaudid here in the emergency department. Patient also received prednisone. Undiagnosed new problem with uncertain prognosis? @ -No Drug Therapy requiring intensive monitoring for toxicity (Heparin, Nitro, Insulin, Cardizem)? @ -No Were any procedures done? @ -No Diagnosis/symptom? @ -Chronic vertigo Acute, or Chronic, or Acute on Chronic? @ -Chronic Uncomplicated (without systemic symptoms) or Complicated (systemic symptoms)? @ -Uncomplicated Side effects of treatment? @ -No Exacerbation, Progression, or Severe Exacerbation? @ -No Poses a threat to life or bodily function? How? (Chest pain, [place], [place], pneumonia, PE, COPD, DKA, ARF, appy, cholecystitis, CVA, Diverticulitis, Homicidal, Suicidal, threat to staff... and all critical care pts) @ -No Diagnosis/symptom? @ -Chronic pain Acute, or Chronic, or Acute on Chronic? @ -Chronic Uncomplicated (without systemic symptoms) or Complicated (systemic symptoms)? @ -Uncomplicated Side effects of treatment? @ -None Exacerbation, Progression, or Severe Exacerbation] @ -No Poses a threat to life or bodily function? @ -No (SeteleAndrease) - Lab Data Lab Results 08/23/23 08/23/23 08/23/23 Range/Units 19:06 19:06 19:06 WBC 8.2 (3.8-10.6) k/uL RBC 4.38 (3.80-5.40) m/uL Hgb 14.2 (11.4-16.0) gm/dL Hct 41.6 (34.0-46.0) % MCV 95.0 (80.0-100.0) fL MCH 32.4 (25.0-35.0) pg MCHC 34.1 (31.0-37.0) g/dL RDW 12.8 (11.5-15.5) % Plt Count 238 (150-450) k/uL MPV 7.2 Sodium 139 (137-145) mmol/L Potassium 3.8 (3.5-5.1) mmol/L Chloride 105 (98-107) mmol/L Carbon Dioxide 20 L (22-30) mmol/L Anion Gap 14 mmol/L BUN 19 H (7-17) mg/dL Creatinine 0.86 (0.52-1.04) mg/dL Est GFR (CKD-EPI)AfAm 71 (>60 ml/min/1.73 sqM) Est GFR (CKD-EPI)NonAf 61 (>60 ml/min/1.73 sqM) Glucose 142 H (74-99) mg/dL Plasma Lactic Acid Margarito 1.7 (0.7-2.0) mmol/L Calcium 11.3 H (8.4-10.2) mg/dL Total Bilirubin 0.7 (0.2-1.3) mg/dL AST 26 (14-36) U/L ALT 18 (4-34) U/L Alkaline Phosphatase 71 (38-126) U/L Total Protein 7.9 (6.3-8.2) g/dL Albumin 5.2 H (3.5-5.0) g/dL Disposition <Liliana Graham - Last Filed: 08/23/23 18:35> Is patient prescribed a controlled substance at d/c from ED?: No Time of Disposition: 21:21 <Kenyon Steele - Last Filed: 08/23/23 21:22> Clinical Impression: Chronic vertigo, Chronic pain Disposition: HOME SELF-CARE Condition: Good Instructions (If sedation given, give patient instructions): Vertigo (ED) Prescriptions: predniSONE [Deltasone] 40 mg PO DAILY #6 tab Referrals: Daniel Martinez DO [Primary Care Provider] - 1-2 days
[2023-08-23 18:45] VITALS: RESP 18; TEMP 98
[2023-08-23 19:15] LABS: HCT 41.6 % (34.0-46.0); HGB 14.2 gm/dL (11.4-16.0); MCH 32.4 pg (25.0-35.0); MCHC 34.1 g/dL (31.0-37.0); Mean Platelet Volume 7.2; Platelet Count 238 k/uL (150-450); RBC 4.38 m/uL (3.80-5.40); RDW 12.8 % (11.5-15.5); WBC 8.2 k/uL (3.8-10.6)
[2023-08-23 19:30] LABS: ALT 18 U/L (4-34); AST 26 U/L (14-36); African American GFR (CKD) 71 (>60 ml/min/1.73 sqM); Albumin 5.2 g/dL (3.5-5.0); Alkaline Phosphatase 71 U/L (38-126); Anion Gap 14 mmol/L; Blood Urea Nitrogen 19 mg/dL (7-17); Calcium 11.3 mg/dL (8.4-10.2); Carbon Dioxide 20 mmol/L (22-30); Chloride 105 mmol/L (98-107); Glucose 142 mg/dL (74-99); Non-African American GFR(CKD) 61 (>60 ml/min/1.73 sqM); Potassium 3.8 mmol/L (3.5-5.1); Sodium 139 mmol/L (137-145); Total Bilirubin 0.7 mg/dL (0.2-1.3); Total Protein 7.9 g/dL (6.3-8.2)
[2023-08-23] MEDS: KETOROLAC 15 MG/ML 1 ML VIAL IM STA (20:40)
[2023-08-23] MEDS: ONDANSETRON 4 MG ODT STARTER PACK 2 TAB BTL PO STA ×2 (20:40→21:30)
[2023-08-23] MEDS: predniSONE 50 MG TAB PO STA (20:42)
[2023-08-23] MEDS: HYDROmorphone 0.5 MG/0.5 ML SYRINGE IM STA (20:43)
--- NOTE | 2023-08-23 21:34 | XR ---
EXAMINATION TYPE: XR chest 2V DATE OF EXAM: 08/23/2023 8:24 PM CLINICAL INDICATION:Female, 88 years old with history of dizziness; [facility] COMPARISON: None TECHNIQUE: XR chest 2V. Frontal and lateral views of the chest.. FINDINGS: Lines/Tubes/Devices: No indwelling lines are seen. Heart/mediastinum: Heart size upper normal. Atherosclerotic calcifications are seen in the aorta. Pulmonary vascularity: Mildly increased. Slightly increased interstitial markings could be due to milly ma and/or chronic changes. Lungs/Pleura: Hazy bibasilar opacities could relate to atelectasis or infiltrates. Costophrenic angle s are relatively sharp. No pneumothorax. Musculoskeletal: No acute osseous abnormality demonstrated in the limits of the exam. Mild degenerat rosa changes. Other findings: None. IMPRESSION: 1. Mildly increased pulmonary vasculature. Slightly increased interstitial markings could be due to edema and/or chronic changes. 2. Hazy bibasilar opacities could relate to atelectasis or infiltrates. Follow-up as clinically perfecto anted.
[2023-08-23 22:29] VITALS: BP 162/86; PULSE 87
== END 2023-08-23 22:01 | disposition home or self-care (01) ==
LOC: EC 17:56
DX: G89.29 Other chronic pain (principal); M79.672 Pain in left foot; R42 Dizziness and giddiness; F12.90 Cannabis use, unspecified, uncomplicated
CPT/HCPCS: 36415; 93005; 80053; 83605; 85027; 71046; 99284; 96372 ×2; J1885; S0119; J7512; J1170

== ENCOUNTER → 2023-11-18 | Outpatient (CLI) | payer MEDICARE, BC ==
--- NOTE | 2023-11-18 13:18 | US ---
EXAMINATION TYPE: US venous doppler duplex LE LT DATE OF EXAM: 11/18/2023 1:02 PM COMPARISON: NONE CLINICAL INDICATION: Female, 88 years old with history of R60.0 LOCALIZED EDEMA; swelling in left raza f. Hx of DVT 3 years ago. Is on plavix SIDE PERFORMED: Left TECHNIQUE: The lower extremity deep venous system is examined utilizing real time linear array sonog swapnil with graded compression, doppler sonography and color-flow sonography. VESSELS IMAGED: Common Femoral Vein Deep Femoral Vein Greater Saphenous Vein * Femoral Vein Popliteal Vein Small Saphenous Vein * Proximal Calf Veins (* superficial vessels) Left Leg: No evidence for DVT IMPRESSION: 1. No diagnostic evidence of DVT
== END | disposition home or self-care (01) ==
LOC: RADUSWWP 12:44
PROVIDERS: ATTEND Family Medicine
DX: R60.0 Localized edema (principal)